=== PATIENT | female | born 1935 | race Caucasian/White ===

== ENCOUNTER 2016-08-12 11:30 | Emergency (ER) | payer OTHER, MEDICARE ==
[2016-08-12] MEDS ORDERED: NS 500 ML IV ONE (11:47)
[2016-08-12] MEDS ORDERED: ONDANSETRON 4 MG/2 ML VIAL ONE (11:48)
[2016-08-12] MEDS ORDERED: ONDANSETRON 4 MG/2 ML VIAL IVP ONE (11:50)
--- NOTE | 2016-08-12 11:53 | CPEKG ---
Heart Rate: 95 RR Interval: 632 P-R Interval: 204 QRSD Interval: 88 QT Interval: 356 QTC Interval: 448 P [place]: 35 QRS [place]: 12 T Wave [place]: 47 EKG Severity - NORMAL ECG - EKG Impression: SINUS RHYTHM Electronically Signed By: Tatiana Oliver 13-Aug-2016 21:22:31
[2016-08-12 12:02] LABS: % IMMATURE GRANULYOCYTES 0.4 % (0.0-1.1); ABSOLUTE IMMATURE GRANULOCYTES 0.03 10^3/uL (0.00-0.10); ADD DIFF? NO; ADD MORPH? NO; ADD SCAN? NO; ATYPICAL LYMPHOCYTE FLAG 10 (0-99); FRAGMENT RBC FLAG 0 (0-99); HEMATOCRIT 41.6 % (38.0-47.0); HEMOGLOBIN 13.5 g/dL (12.6-16.3); LEFT SHIFT FLG 0 (0-99); LIPEMIA HEMOLYSIS FLAG 80 (0-99); MEAN CELL HEMOGLOBIN 30.1 pg (27.9-34.1); MEAN CELL HEMOGLOBIN CONCENTR. 32.5 g/dL (32.4-36.7); MEAN CELL VOLUME 92.9 fL (81.5-99.8); MEAN PLATELET VOLUME 10.5 fL (8.7-11.7); PLATELET CLUMPS FLAG 0 (0-99); PLATELET COUNT 293 10^3/uL (150-400); RED BLOOD CELL COUNT 4.48 10^6/uL (4.18-5.33); RED CELL DISTRIBUTION WIDTH 12.6 % (11.5-15.2)
[2016-08-12 12:14] LABS: ANION GAP 10 mEq/L (8-16); CALCIUM 9.7 mg/dL (8.5-10.4); CARBON DIOXIDE 27 mEq/l (22-31); CHLORIDE 100 mEq/L (97-110); CREATININE 0.5 mg/dL (0.6-1.0); GLOMERULAR FILTRATION RATE > 60; GLUCOSE 116 mg/dL (70-100); POTASSIUM 4.1 mEq/L (3.5-5.2); SODIUM 137 mEq/L (134-144)
[2016-08-12 12:16] LABS: INR 0.97 (0.83-1.16); PROTIME(PATIENT) 12.8 SEC (12.0-15.0)
[2016-08-12 12:17] LABS: APTT 27.1 SEC (23.0-38.0)
--- NOTE | 2016-08-12 12:20 | EDPHY ---
H & P Time Seen by Provider: 08/12/16 11:45 HPI/ROS: HPI Vertigo. 81-year-old female by private vehicle with family. This patient has a history of congenital scoliosis of the cervical spine. She reports that secondary to this she also has a history of cervical vertigo. She reports that she has had 3 -4 episodes of cervical vertigo in the past. This was diagnosed by her primary care physician Dr. Manoj Villafuerte. As therapy for this she gets massage therapy as prescribed by Dr. Villafuerte. She also has a automobile mechanic apprentice and her civil preparedness officer is Dr. Guero Bhakta. They are both aware of this problem as well. She has never been imaged specifically for this problem. 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 She felt fine. She reports that she returned home and felt okay but then her vertigo which she again describes as typical of her previous episodes came on more suddenly than usual and has been more extreme. It is worse with head movement and in particular flexion of her neck. ROS: Constitutional: No fever, no chills. No weakness. Eyes: No discharge. No changes in vision. ENT: No sore throat. No nasal congestion or rhinorrhea. Respiratory: No cough. No shortness of breath. Cardiac: No chest pain, no palpitations. Gastrointestinal: No abdominal pain, no vomiting, no diarrhea. Genitourinary: No hematuria. No dysuria or increased frequency with urination. Musculoskeletal: No back pain. No neck pain. No myalgias or arthralgias. Skin: No rashes. Neurological: No headache. No focal weakness or altered sensation. Past medical history: She is on oxygen, 3 L by nasal cannula 24-7. 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 She also has COPD. Other past medical history includes hypertension, acute myocardial infarction, GERD, hyperlipidemia, she takes a baby aspirin and is on amlodipine. Social history: She is currently here with her son. Physical Exam: General Appearance: Alert, no distress. This patient is responding to questions appropriately and in full sentences. This patient appears well- hydrated and well-nourished. Eyes: Pupils equal and round no pallor or injection. No lid edema, erythema or injection. ENT, Mouth: Mucous membranes are moist. The pharyngeal tissues are unremarkable. No edema or swelling. No asymmetry suggestive of abscess. No erythema or exudates. Neck is nontender: No pain on flexion of the neck. No carotid artery bruits auscultated bilaterally. Respiratory: There are no retractions, lungs are clear to auscultation with good air movement bilaterally. Cardiovascular: Regular rate and rhythm. Holosystolic murmur. Gastrointestinal: Abdomen is soft and nontender, no masses, bowel sounds normal. No focal tenderness at McBurney's point. No Romero sign. Neurological: Motor sensory function is grossly intact. Cranial nerves are normal. Skin: Warm and dry, no rashes. Musculoskeletal: Neck is supple and nontender. Extremities are symmetrical. All joints range without pain or impingement. Psychiatric: No agitation. No depression. Database: EKG: EKG time is 11:51 a.m.; EKG shows a narrow complex normal sinus rhythm with a ventricular rate of 95. The [place], QRS, QT intervals are within normal limits. There are no ST-T wave changes indicative of ischemic or injury pattern. No evidence of right heart strain. No evidence of WPW, Brugada syndrome, hypertrophic cardiomyopathy. Interpreted by me. Imaging: Carotid artery Doppler ultrasounds: Negative for any significant pathology. Results were discussed with staff radiologist Dr. Perez Pham. Vertebral artery Doppler ultrasounds with position changes: Negative for any significant pathology. Results were discussed with staff radiologist Dr. Perez Pham. Procedures: Emergency department course: Patient placed on a engine emission technician. EKG performed. She will be given 250 cc of IV normal saline. As she is sitting still she does not have any symptoms at this time. 12:35 p.m., spoke with Dr. Perez Pham, radiologist, regarding imaging this patient's cervical/vertebral vasculature. He recommended ultrasound Doppler studies be done with flexion and extension positioning. This was discussed with the transport tank technician. I also discussed with the patient and her son. They endorse. 2:25 p.m., patient re-evaluated. Resting comfortably at this time. Repeat neurologic Assessment is nonfocal. She is asymptomatic. She is ambulatory without difficulty and with a normal gait. Results of her ultrasound and blood work were discussed with her and her son. She feels comfortable going home. She will follow up with her primary care physician Dr. Manoj Villafuerte on Sunday for referral for massage therapy which has worked well for her in the past with this condition. Return to emergency department precautions were discussed with her son. All of their questions were answered. She was discharged home in good condition. Differential Diagnosis: The differential diagnosis on this patient includes but is not limited to positional vertigo, cervical vertigo, CVA, vascular compromise. This represents a partial list of diagnoses considered. These considerations are based on history, physical exam, past history, reassessment and diagnostic testing. Smoking Status: Never smoked Constitutional: Initial Vital Signs Temperature (C) 36.4 C 08/12/16 11:33 Heart Rate 89 08/12/16 11:33 Respiratory Rate 18 08/12/16 11:33 Blood Pressure 154/90 H 08/12/16 11:33 O2 Sat (%) 90 L 08/12/16 11:33 O2 Delivery Mode Room Air O2 (L/minute) 3 Allergies/Adverse Reactions: bacitracin [From Neosporin] Allergy (Unknown, Verified 08/12/16 11:32) bacitracin zinc [From Neosporin] Allergy (Unknown, Verified 08/12/16 11:32) gramicidin D [From Neosporin] Allergy (Unknown, Verified 08/12/16 11:32) neomycin sulfate [From Neosporin] Allergy (Unknown, Verified 08/12/16 11:32) polymyxin B [From Neosporin] Allergy (Unknown, Verified 08/12/16 11:32) polymyxin B sulfate [From Neosporin] Allergy (Unknown, Verified 08/12/16 11:32) Sulfa (Sulfonamide Antibiotics) Allergy (Unknown, Verified 08/12/16 11:32) Home Medications: Medication Instructions Recorded Aspirin [Aspirin 81mg] 81 mg PO DAILY 11/21/10 Lansoprazole [Prevacid] 30 mg PO DAILY 11/21/10 Montelukast Sodium [Singulair] 10 mg PO DAILY@1800 11/21/10 SIMVASTATIN [Zocor] 40 mg PO 11/21/10 amLODIPine BESYLATE [Norvasc 5mg] 5 mg PO DAILY 11/21/10 Medical Decision Making - Data Points Laboratory Results: Laboratory Results 08/12/16 11:54 08/12/16 11:54 Medications Given: Discontinued Medications Sodium Chloride (Ns) 500 mls @ 0 mls/hr IV ONCE ONE PRN Reason: As Directed Stop: 08/12/16 11:48 Last Admin: 08/12/16 11:50 Dose: 500 mls Ondansetron HCl (Zofran) 4 mg IVP EDNOW ONE Stop: 08/12/16 11:51 Last Admin: 08/12/16 11:50 Dose: 4 mg Departure - Departure Disposition: Home, Routine, Self-Care Clinical Impression: Positional vertigo Condition: Good Instructions: Vertigo (ED) Additional Instructions: Read and follow provided instructions. Follow-up with your primary care physician, Dr. Manoj Villafuerte, on Sunday as discussed for re-evaluation and further management. Explain this is for an emergency department follow-up. Avoid any strenuous activity. Return to the emergency department for return of symptoms or other serious concerns. Referrals: Manoj Villafuerte MD [Primary Care Provider] - As per Instructions
[2016-08-12 12:24] LABS: TROPONIN I < 0.012 ng/mL (0-0.034)
[2016-08-12 12:36] LABS: CREATINE KINASE-MB FRACTION 4.55 ng/mL (0-3.19)
[2016-08-12 13:07] LABS: CK-MB INTERPRETATION POSITIVE (NEGATIVE)
[2016-08-12 13:37] VITALS: RESP 20
[2016-08-12 14:44] VITALS: BP 156/75; PULSE 89; TEMP 98.6; O2SAT 96
== END 2016-08-12 14:44 | disposition home or self-care (01) ==
DX: H81.10 Benign paroxysmal vertigo, unspecified ear (principal); I10 Essential (primary) hypertension; J44.9 Chronic obstructive pulmonary disease, unspecified; I25.2 Old myocardial infarction; Z79.82 Long term (current) use of aspirin
CPT/HCPCS: 71010; 93005; 93880; 96374; 99285; J2405

== ENCOUNTER → 2016-09-26 | Outpatient (CLI) | payer OTHER, MEDICARE | LOC: BHFA 16:15 | PROVIDERS: ATTEND Internal Medicine Cardiovascular Disease | DX: I35.0 Nonrheumatic aortic (valve) stenosis (principal) ==

== ENCOUNTER 2017-01-11 15:32 | Emergency (ER) | payer OTHER, MEDICARE ==
[2017-01-11 15:37] VITALS: TEMP 97.9
--- NOTE | 2017-01-11 15:57 | CPEKG ---
Heart Rate: 90 RR Interval: 667 P-R Interval: 200 QRSD Interval: 86 QT Interval: 364 QTC Interval: 446 P [place]: 38 QRS [place]: 6 T Wave [place]: 45 EKG Severity - BORDERLINE ECG - EKG Impression: SINUS RHYTHM EKG Impression: PROBABLE LEFT ATRIAL ABNORMALITY Electronically Signed By: Sumeet Sarmiento 11-Jan-2017 16:13:56
--- NOTE | 2017-01-11 16:13 | EDPHY ---
H & P Stated Complaint: at opthalmologist had sharp pains to chest with deep breath Time Seen by Provider: 01/11/17 15:56 HPI/ROS: CHIEF COMPLAINT: Chest pain HISTORY OF PRESENT ILLNESS: The patient is an 81-year-old female who comes to the emergency department after a brief episode of chest pain on the left side of her chest. She has a history of scoliosis and wears oxygen for compromised pulmonary volumes. She also had a minor heart attack in 1999 that was managed medically. She is followed by Dr. Bhakta and Dr. Villafuerte. She was at her eye doctor today and was injected in the arm with some type of medication that they used to dilate her eyes to check for glaucoma. She states that they do this once a month. About 5 minutes after the injection she developed left-sided chest pain. She went to see her anesthetic assistant who referred her to the ER. Her pain resolved after about 15 minutes. She denies shortness of breath during the episode. She denies nausea vomiting or diaphoresis. She does not feel lightheaded or dizzy. She drove herself here. REVIEW OF SYSTEMS: Constitutional: denies: chills, fever, recent illness, recent injury EENTM: denies: blurred vision, double vision, nose congestion Respiratory: denies: cough, shortness of breath Cardiac: See HPI denies: irregular heart rate, lightheadedness, palpitations Gastrointestinal/Abdominal: denies: abdominal pain, diarrhea, nausea, vomiting, blood streaked stools Genitourinary: denies: dysuria, frequency, hematuria, pain Musculoskeletal: denies: joint pain, muscle pain Skin: denies: lesions, rash, jaundice, bruising Neurological: denies: headache, numbness, paresthesia, tingling, dizziness, weakness Hematologic/Lymphatic: denies: blood clots, easy bleeding, easy bruising Immunologic/allergic: denies: HIV/AIDS, transplant EXAM: GENERAL: Well-appearing, well-nourished and in no acute distress. HEAD: Atraumatic, normocephalic. EYES: Pupils equal round and reactive to light, extraocular movements intact, sclera anicteric, conjunctiva are normal. ENT: TMs normal, nares patent, oropharynx clear without exudates. Moist mucous membranes. NECK: Normal range of motion, supple without lymphadenopathy or JVD. LUNGS: Breath sounds clear to auscultation bilaterally and equal. No wheezes rales or rhonchi. HEART: Regular rate and rhythm without murmurs, rubs or gallops. ABDOMEN: Soft, nontender, normoactive bowel sounds. No guarding, no rebound. No masses appreciated. BACK: No CVA tenderness, no spinal tenderness, step-offs or deformities EXTREMITIES: Normal range of motion, no pitting or edema. No clubbing or cyanosis. NEUROLOGICAL: Cranial nerves II through XII grossly intact. Normal speech, normal gait. 5/5 strength, normal movement in all extremities, normal sensation PSYCH: Normal mood, normal affect. SKIN: Warm, dry, normal turgor, no visible rashes or lesions. Source: Patient Exam Limitations: No limitations - Personal History Current Tetanus/Diphtheria Vaccine: Unsure - Medical/Surgical History Hx Asthma: No Hx Chronic Respiratory Disease: Yes Hx Diabetes: No Hx Cardiac Disease: Yes Hx Renal Disease: No Hx Cirrhosis: No Hx Alcoholism: No Hx HIV/AIDS: No Other PMH: PMH: AMI, HTN, high cholesterol, GERD, COPD - Family History Significant Family History: No pertinent family hx - Social History Smoking Status: Never smoked Alcohol Use: Sober Drug Use: None Constitutional: Initial Vital Signs Temperature (C) 36.6 C 01/11/17 15:35 Heart Rate 96 01/11/17 15:35 Respiratory Rate 20 01/11/17 15:35 Blood Pressure 178/82 H 01/11/17 15:35 O2 Sat (%) 95 01/11/17 15:35 O2 Delivery Mode Room Air O2 (L/minute) 4 Allergies/Adverse Reactions: bacitracin [From Neosporin] Allergy (Unknown, Verified 01/11/17 15:34) bacitracin zinc [From Neosporin] Allergy (Unknown, Verified 01/11/17 15:34) gramicidin D [From Neosporin] Allergy (Unknown, Verified 01/11/17 15:34) neomycin sulfate [From Neosporin] Allergy (Unknown, Verified 01/11/17 15:34) polymyxin B [From Neosporin] Allergy (Unknown, Verified 01/11/17 15:34) polymyxin B sulfate [From Neosporin] Allergy (Unknown, Verified 01/11/17 15:34) Sulfa (Sulfonamide Antibiotics) Allergy (Unknown, Verified 01/11/17 15:34) Home Medications: Medication Instructions Recorded Aspirin [Aspirin 81mg] 81 mg PO DAILY 11/21/10 Lansoprazole [Prevacid] 30 mg PO DAILY 11/21/10 Montelukast Sodium [Singulair] 10 mg PO DAILY@1800 11/21/10 SIMVASTATIN [Zocor] 40 mg PO 11/21/10 amLODIPine BESYLATE [Norvasc 5mg] 5 mg PO DAILY 11/21/10 Medical Decision Making - Diagnostics EKG Interpretation: An EKG obtained and was read and documented in trace view. Please see trace view for full reading and report. Sinus rhythm, no acute ischemic changes 4:20 p.m. is able to speak with Dr. Jones patient's interior design assistant. He states that she was injected with intravenous floricine for retinal exam and doubts that has anything to do with her chest pain. Imaging Results: Imaging Impressions Chest X-Ray 01/11/17 16:10 Impression: Nothing acute identified in this patient with a severe kyphoscoliosis. Imaging: Discussed imaging studies w/ call out clerk Radiologist ED Course/Re-evaluation: 5:50 p.m. we discussed the test results. The patient remains asymptomatic. I offered continued observation and repeat enzymes. She declines this and is eager to go home. She will return if her symptoms return or worsen. Differential Diagnosis: Partial list of the Differential diagnosis considered include but were not limited to; acute coronary disease, anxiety, musculoskeletal pain and although unlikely based on the history and physical exam, I also considered PE, pneumothorax. - Data Points Laboratory Results: Laboratory Results 01/11/17 15:58 01/11/17 15:58 01/11/17 01/11/17 01/11/17 15:58 15:58 15:58 WBC 7.30 10^3/uL 10^3/uL (3.80-9.50) RBC 4.19 10^6/uL 10^6/uL (4.18-5.33) Hgb 13.1 g/dL g/dL (12.6-16.3) Hct 40.3 % % (38.0-47.0) MCV 96.2 fL fL (81.5-99.8) MCH 31.3 pg pg (27.9-34.1) MCHC 32.5 g/dL g/dL (32.4-36.7) RDW 12.4 % % (11.5-15.2) Plt Count 270 10^3/uL 10^3/uL (150-400) MPV 11.1 fL fL (8.7-11.7) Neut % (Auto) 47.9 % % (39.3-74.2) Lymph % (Auto) 37.7 % % (15.0-45.0) [place] % (Auto) 11.1 % % (4.5-13.0) Eos % (Auto) 2.3 % % (0.6-7.6) Baso % (Auto) 0.7 % % (0.3-1.7) Nucleat RBC Rel Count 0.0 % % (0.0-0.2) Absolute Neuts (auto) 3.50 10^3/uL 10^3/uL (1.70-6.50) Absolute Lymphs (auto) 2.75 10^3/uL 10^3/uL (1.00-3.00) Absolute Monos (auto) 0.81 10^3/uL H 10^3/uL (0.30-0.80) Absolute Eos (auto) 0.17 10^3/uL 10^3/uL (0.03-0.40) Absolute Basos (auto) 0.05 10^3/uL 10^3/uL (0.02-0.10) Absolute Nucleated RBC 0.00 10^3/uL 10^3/uL (0-0.01) Immature Gran % 0.3 % % (0.0-1.1) Immature Gran # 0.02 10^3/uL 10^3/uL (0.00-0.10) D-Dimer 0.46 ug/mLFEU ug/mLFEU (0.00-0.50) Sodium 138 mEq/L mEq/L (134-144) Potassium 4.4 mEq/L mEq/L (3.5-5.2) Chloride 100 mEq/L mEq/L (97-110) Carbon Dioxide 27 mEq/l mEq/l (22-31) Anion Gap 11 mEq/L mEq/L (8-16) BUN 15 mg/dL mg/dL (7-23) Creatinine 0.7 mg/dL mg/dL (0.6-1.0) Estimated GFR > 60 Glucose 99 mg/dL mg/dL (70-100) Calcium 9.6 mg/dL mg/dL (8.5-10.4) Troponin I < 0.012 ng/mL ng/mL (0-0.034) Departure - Departure Disposition: Home, Routine, Self-Care Clinical Impression: Chest pain Qualifiers: Chest pain type: unspecified Qualified Code(s): R07.9 - Chest pain, unspecified Condition: Fair Instructions: Chest Pain (ED) Referrals: Manoj Villafuerte MD [Primary Care Provider] - As per Instructions
[2017-01-11 16:25] LABS: % IMMATURE GRANULYOCYTES 0.3 % (0.0-1.1); ABSOLUTE IMMATURE GRANULOCYTES 0.02 10^3/uL (0.00-0.10); ADD DIFF? NO; ADD MORPH? NO; ADD SCAN? NO; ATYPICAL LYMPHOCYTE FLAG 10 (0-99); FRAGMENT RBC FLAG 0 (0-99); HEMATOCRIT 40.3 % (38.0-47.0); HEMOGLOBIN 13.1 g/dL (12.6-16.3); LEFT SHIFT FLG 0 (0-99); LIPEMIA HEMOLYSIS FLAG 80 (0-99); MEAN CELL HEMOGLOBIN 31.3 pg (27.9-34.1); MEAN CELL HEMOGLOBIN CONCENTR. 32.5 g/dL (32.4-36.7); MEAN CELL VOLUME 96.2 fL (81.5-99.8); MEAN PLATELET VOLUME 11.1 fL (8.7-11.7); PLATELET CLUMPS FLAG 0 (0-99); PLATELET COUNT 270 10^3/uL (150-400); RED BLOOD CELL COUNT 4.19 10^6/uL (4.18-5.33); RED CELL DISTRIBUTION WIDTH 12.4 % (11.5-15.2)
[2017-01-11 16:26] VITALS: O2SAT 97
[2017-01-11 16:31] LABS: ANION GAP 11 mEq/L (8-16); CALCIUM 9.6 mg/dL (8.5-10.4); CARBON DIOXIDE 27 mEq/l (22-31); CHLORIDE 100 mEq/L (97-110); CREATININE 0.7 mg/dL (0.6-1.0); GLOMERULAR FILTRATION RATE > 60; GLUCOSE 99 mg/dL (70-100); POTASSIUM 4.4 mEq/L (3.5-5.2); SODIUM 138 mEq/L (134-144)
[2017-01-11 16:42] LABS: TROPONIN I < 0.012 ng/mL (0-0.034)
[2017-01-11 18:03] VITALS: BP 157/65; PULSE 83; RESP 20
== END 2017-01-11 18:05 | disposition home or self-care (01) ==
DX: R07.9 Chest pain, unspecified (principal); I10 Essential (primary) hypertension; J44.9 Chronic obstructive pulmonary disease, unspecified; Z79.82 Long term (current) use of aspirin

== ENCOUNTER → 2017-09-10 | Outpatient (CLI) | payer OTHER, MEDICARE | LOC: BHFA 14:00 | PROVIDERS: ATTEND Internal Medicine Cardiovascular Disease | DX: I35.0 Nonrheumatic aortic (valve) stenosis (principal) ==

== ENCOUNTER 2017-10-03 06:13 | Day surgery (SDC) | payer OTHER, MEDICARE ==
[2017-10-03] MEDS ORDERED: diphenhydrAMINE 25 MG CAP PO ONE (06:18)
[2017-10-03] MEDS ORDERED: NS 1,000 ML IV ONE (06:18)
[2017-10-03] MEDS ORDERED: DIAZEPAM 5 MG TAB PO ONE (06:18)
[2017-10-03] MEDS ORDERED: FAMOTIDINE 20 MG TAB PO ONE (06:18)
[2017-10-03] MEDS ORDERED: ASPIRIN EC 325 MG TAB PO ONE (06:18)
--- NOTE | 2017-10-03 06:40 | CPEKG ---
Heart Rate: 96 RR Interval: 625 P-R Interval: 188 QRSD Interval: 92 QT Interval: 356 QTC Interval: 450 P [place]: 45 QRS [place]: 18 T Wave [place]: 68 EKG Severity - NORMAL ECG - EKG Impression: SINUS RHYTHM Electronically Signed By: Wesley Saleem 03-Oct-2017 10:56:59
[2017-10-03 06:50] LABS: PLATELET COUNT 275 10^3/uL (150-400)
--- NOTE | 2017-10-03 06:58 | PDPROPOC ---
Sedation Plan of Care Sedation Plan of Care: mental status noted, patient educated of risks, benefits , alternatives, patient can tolerate sedation ASA Classification: ASA 2 Planned drugs: fentanyl, midazolam Mallampati Score: Class 2 Mallampati Reference Image: Patient passed 3-3-2 rule?: Yes
--- NOTE | 2017-10-03 06:58 | PDHPUP ---
History & Physical Update H&P update statement: This history and physical update is based on an assessment of the patient which was completed after admission or registration (within 24 hours), but prior to the surgery/procedure. H&P update: H&P reviewed & patient examined, no change in patient's condition since H&P completed
[2017-10-03 06:59] LABS: INR 0.96 (0.83-1.16)
[2017-10-03] MEDS ORDERED: LIDOCAINE 1% 300 MG/30 ML SDV ONE (07:01)
[2017-10-03] MEDS ORDERED: IOPAMIDOL (ISOVUE-370) 150 ML BTL IV ONE ×2 (07:01→13:35)
[2017-10-03] MEDS ORDERED: MIDAZOLAM 2 MG/2 ML VIAL ONE (07:01)
[2017-10-03] MEDS ORDERED: fentaNYL 100 MCG/2 ML INJ ONE (07:01)
[2017-10-03] MEDS ORDERED: CLOPIDOGREL BISULFATE 75 MG TAB ONE (07:20)
[2017-10-03] MEDS ORDERED: hydrALAZINE 20 MG/ML VIAL ONE (08:16)
[2017-10-03] MEDS ORDERED: NITROGLYCERIN 0.4 MG BTL SL PRN (08:45)
[2017-10-03] MEDS ORDERED: OXYCODONE/APAP 5/325 TAB PO PRN (08:45)
[2017-10-03] MEDS ORDERED: ATROPINE SULFATE 1 MG/10 ML SYR IVP PRN (08:45)
[2017-10-03] MEDS ORDERED: ONDANSETRON 4 MG/2 ML VIAL IVP PRN (08:45)
[2017-10-03] MEDS ORDERED: HYDROCODONE/APAP 5/325 TAB PO PRN (08:45)
--- NOTE | 2017-10-03 09:13 | CPIP ---
[f rep st] INVASIVE CARDIAC PROCEDURE DATE OF PROCEDURE: 10/03/2017 INDICATION FOR PROCEDURE: Critical aortic stenosis. PROCEDURE: 1. Nonselective left groin sheathogram. 2. 7-[place]anese sheath left common femoral vein. 3. Bilateral selective coronary angiography. 4. Left subclavian angiography. 5. Abdominal aortogram. BRIEF HISTORY: This is an 82-year-old female with history of critical aortic stenosis, worsening dys pnea on exertion. Given these findings, patient consented for right and left heart catheterization i n anticipation for eventual TAVR. The patient had seen Dr. Brian Forbes from CT surgery as an outpati ent, was deemed to be a suitable candidate for TAVR, given her frailty, age, as well as her comorbid issues. DESCRIPTION OF PROCEDURE: After informed consent, the patient was brought to [facility], where the left ky in was prepped and draped in the sterile fashion. Using lidocaine, a short 6-Sudanese sheath in the le ft common femoral artery verified angiographically. Of note, the vessel appeared to be clean in the left common femoral artery; however, of smaller diameter. A 7-Sudanese sheath was placed in the left c ommon femoral vein. Initially a [place]-Trista catheter was advanced. However, this did not appear to be traversing the IVC due to the patient's severe kyphosis properly. We took a venogram, which did con firm that we were indeed in the common femoral vein; however, it did appear that due to the excessive tortuosity that the catheter would not be able to be delivered effectively. Thus, we decided to scarlet ndon performing a right heart catheterization to avoid any untoward complication. A JL4 catheter was advanced and the patient, again due to her excessive kyphosis, had severe tortuosity over the descen ding aorta. We decided to upsize the 6-Sudanese sheath to a 45 cm 6-Sudanese sheath over an Amplatz supe rstiff wire. A JR4 catheter was advanced and images of the right coronary artery were obtained, whic h showed normal ostial RCA. Mid RCA had 30% to 40% tubular disease. Distal RPD and RPLS appeared to be healthy and free of disease. After the images were obtained, the JL4 catheter was pulled back an d placed in the left subclavian artery where angiography of the left subclavian artery showed widely patent left subclavian artery, which was straight and of much larger diameter than the femoral vessel s. After the images were obtained, the JL4 catheter was removed and the AL1 catheter was advanced to the left coronary artery. Images of the left coronary artery showed mild 20% left main disease. Le ft circumflex artery had 30% tubular disease proximally, terminated to a marginal 1 artery which was healthy and free of disease. The LAD was a serpiginous vessel and appeared to have mild plaque disea se throughout its course, but no high-grade stenosis. After imaging had been obtained, the AL1 ragini ter was removed. A pigtail catheter was then advanced to the descending aorta. Abdominal aortogram showed patent but thin distal descending aorta. There was 50% disease in the right common iliac martha ry. Distally, the internal and external and common femoral arteries appeared to be widely patent. T he left common, external, and internal iliac arteries appeared to be widely patent, but again of smal ler diameter. IMPRESSION: 1. Mild nonobstructive, noncritical coronary artery disease bilaterally. 2. Severe tortuous aorta. 3. Widely patent left subclavian artery with no evidence of significant disease. 4. 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 PLAN: The patient is not a candidate for transfemoral TAVR based on her anatomy of her femoral diame ter, as well as the extreme tortuosity of the descending aorta. Her left subclavian appears to be wi negrita patent and of large enough caliber. We will obtain CTAs of the chest, abdomen, and pelvis for f urther evaluation. I will discuss this with the TAVR team for further evaluation. /[id number]/MODL
[2017-10-03] MEDS ORDERED: KETOROLAC 30 MG/1 ML SDV IVP ONE (11:30)
[2017-10-03 16:01] VITALS: BP 130/58
== END 2017-10-03 16:14 | disposition home or self-care (01) ==
LOC: FCATH 06:13
PROVIDERS: ATTEND Internal Medicine Cardiovascular Disease
DX: Z01.810 Encounter for preprocedural cardiovascular examination (principal); I35.0 Nonrheumatic aortic (valve) stenosis; R06.00 Dyspnea, unspecified; I70.8 Atherosclerosis of other arteries; I77.1 Stricture of artery; I65.23 Occlusion and stenosis of bilateral carotid arteries; I25.10 Atherosclerotic heart disease of native coronary artery without angina pectoris; J44.9 Chronic obstructive pulmonary disease, unspecified; K21.9 Gastro-esophageal reflux disease without esophagitis; E78.5 Hyperlipidemia, unspecified; I10 Essential (primary) hypertension; M41.9 Scoliosis, unspecified; I34.0 Nonrheumatic mitral (valve) insufficiency; I25.2 Old myocardial infarction; G62.9 Polyneuropathy, unspecified; J98.4 Other disorders of lung; Z79.82 Long term (current) use of aspirin; Z87.891 Personal history of nicotine dependence; Z88.2 Allergy status to sulfonamides
CPT/HCPCS: 71275; 74174; 75625; 75710; 93005; 93458; 93880; C1769; J0360; J1644; J1885; J2250; J2405; J3010; Q9967

== ENCOUNTER 2017-10-15 06:08 | Inpatient (IN) | payer OTHER, MEDICARE ==
[2017-10-15] MEDS ORDERED: EPINEPHrine 1 MG/ML INJ ONE (06:44)
[2017-10-15] MEDS ORDERED: PHENYLEPHRINE 10 MG/ML SDV ONE (06:44)
[2017-10-15] MEDS ORDERED: LIDOCAINE 2% 5 ML SDV ONE (06:46)
[2017-10-15] MEDS ORDERED: PROPOFOL 200 MG/20 ML VIAL ONE (06:46)
[2017-10-15] MEDS ORDERED: fentaNYL 100 MCG/2 ML INJ ONE (06:51)
[2017-10-15] MEDS ORDERED: ROCURONIUM 50 MG/5 ML VIAL ONE ×2 (06:52→09:18)
[2017-10-15] MEDS ORDERED: IOPAMIDOL (ISOVUE-370) 150 ML BTL IV ONE (06:59)
[2017-10-15] MEDS ORDERED: ceFAZolin 2 GM/DEXTROSE 100 ML IV ONE (07:00)
--- NOTE | 2017-10-15 07:23 | PDANEPAE ---
ANE History of Present Illness tavr ANE Past Medical History - Cardiovascular History Hx Hypertension: Yes Hx Arrhythmias: No Hx Chest Pain: No Hx Coronary Artery / Peripheral Vascular Disease: Yes Hx CHF / Valvular Disease: Yes Hx Palpitations: No Cardiovascular History Comment: s/p mi - Pulmonary History Hx COPD: Yes Hx Oxygen in Use at Home: Yes Hx Sleep Apnea: No Pulmonary History Comment: restrictive lung disease - Endocrine History Hx Diabetes: No - Renal History Hx Renal Disorders: No - Liver History Hx Hepatic Disorders: No ANE Review of Systems Review of Systems: - Exercise capacity Exercise capacity: <4 METS ANE Patient History - Allergies Allergies/Adverse Reactions: bacitracin [From Neosporin] Allergy (Unknown, Verified 01/11/17 15:34) bacitracin zinc [From Neosporin] Allergy (Unknown, Verified 01/11/17 15:34) gramicidin D [From Neosporin] Allergy (Unknown, Verified 01/11/17 15:34) neomycin sulfate [From Neosporin] Allergy (Unknown, Verified 01/11/17 15:34) polymyxin B [From Neosporin] Allergy (Unknown, Verified 01/11/17 15:34) polymyxin B sulfate [From Neosporin] Allergy (Unknown, Verified 01/11/17 15:34) Sulfa (Sulfonamide Antibiotics) Allergy (Unknown, Verified 01/11/17 15:34) - Home Medications Home Medications: Aspirin [Aspirin 81mg (*)] 81 mg PO DAILY 09/27/17 [Last Taken 10/14/17] Atorvastatin Calcium [Lipitor 40 mg (*)] 40 mg PO DAILY 09/27/17 [Last Taken ] Lisinopril [Zestril 5 mg (*)] 5 mg PO DAILY 09/27/17 [Last Taken 10/03/17 05:00] Montelukast Sodium [Singulair 10 mg (*)] 10 mg PO HS 09/27/17 [Last Taken ] Multivitamins [Multivitamin (*)] 1 each PO DAILY 09/27/17 [Last Taken 10/02/17] [place]-3 Fatty Acids [Fish Oil 1000 mg (*)] 2,000 mg PO DAILY 09/27/17 [Last Taken 10/02/17] Omeprazole 20 mg PO DAILY 09/27/17 [Last Taken 10/02/17] Torsemide [Demadex 10 MG (RX)] 10 mg PO DAILY10 09/27/17 [Last Taken 10/02/17] - NPO status NPO Status: no food or drink >8 hours - Smoking Hx Smoking Status: Former smoker ANE Labs/Vital Signs - Vital Signs Height: 154.94 cm Weight: 63.503 kg ANE Physical Exam - Airway Mallampati Score: Class 2 Mouth exam: normal dental/mouth exam - Pulmonary Pulmonary: no respiratory distress - Cardiovascular Cardiovascular: regular rate and rhythym - ASA Status ASA Status: III ANE Anesthesia Plan Anesthesia Plan: general endotracheal anesthesia Lines/Monitors: arterial line, central line, ROBERT
[2017-10-15] MEDS ORDERED: SUCCINYLCHOLINE CHLORIDE 200 MG/10 ML SYR IVP ONE (07:28)
--- NOTE | 2017-10-15 07:34 | PDPROPOC ---
Sedation Plan of Care Sedation Plan of Care: mental status noted, patient educated of risks, benefits , alternatives, patient can tolerate sedation ASA Classification: ASA 3 Planned drugs: other Mallampati Score: Class 3 Mallampati Reference Image: Patient passed 3-3-2 rule?: Yes
[2017-10-15] MEDS ORDERED: HEPARIN 10,000 UNIT/10 ML MDV (1,000 UNIT/ML) ONE (08:51)
[2017-10-15] MEDS ORDERED: AMIODARONE HCL 150 MG/3 ML VIAL ONE (10:11)
[2017-10-15] MEDS ORDERED: PROTAMINE SULFATE 50 MG/5 ML VIAL IVP ONE (10:23)
[2017-10-15] MEDS ORDERED: ONDANSETRON 4 MG/2 ML VIAL IVP PRN ×2 (10:38→11:04)
[2017-10-15] MEDS ORDERED: IBUPROFEN 800 MG TAB PO PRN (10:38)
[2017-10-15] MEDS ORDERED: ATROPINE SULFATE 1 MG/10 ML SYR IVP PRN (10:38)
[2017-10-15] MEDS ORDERED: HYDROmorphONE/DILAUDID 1 MG/ML INJ IVP PRN (10:38)
[2017-10-15] MEDS ORDERED: hydrALAZINE 20 MG/ML VIAL IVP PRN (10:38)
[2017-10-15] MEDS ORDERED: ONDANSETRON DISINTEGRATING 4 MG TAB PO PRN (10:38)
[2017-10-15] MEDS ORDERED: oxyCODONE IR 5 MG TAB PO PRN (10:38)
[2017-10-15] MEDS ORDERED: NALOXONE HCL 0.4 MG/ML INJ IVP PRN (11:04)
[2017-10-15] MEDS ORDERED: fentaNYL 100 MCG/2 ML INJ IVP PRN (11:04)
[2017-10-15] MEDS ORDERED: ALBUTEROL 3 ML DEYVIAL IH PRN (11:04)
[2017-10-15] MEDS ORDERED: PHENYLEPHRINE HCL 100 MCG/ML SYR IVP PRN (11:04)
--- NOTE | 2017-10-15 11:04 | POSTANESTH ---
Post Anesthetic Evaluation Cardiovascular Status: Normal, Stable Respiratory Status: Normal, Stable Level of Consciousness/Mental Status: Can Participate in Eval Pain Control: Adequate, Prn Tx Ordered Nausea/Vomiting Control: Adequate, Prn Tx Ordered Complications Possibly Related to Anesthesia: None Noted
--- NOTE | 2017-10-15 11:34 | CPIP ---
[f rep st] INVASIVE CARDIAC PROCEDURE DATE OF PROCEDURE: 10/15/2017 INDICATION FOR PROCEDURE: Critical aortic stenosis. CO-SURGEONS: Brian Forbes DO; Janet Christopher MD; Ry Lord MD. PROCEDURE: 1. Nonselective left groin sheathogram. 2. Aortic root angiography. 3. Left subclavian artery access via open cutdown with graft placement. 4. Placement of Medtronic CoreValve Evolut R 26 mm valve via the subclavian route. HISTORY: Briefly, this is an 82-year-old female with history of critical aortic stenosis, kyphoscoli osis, severe restrictive lung disease, who was deemed to be a suitable candidate for TAVR given her e xtreme high-risk nature. DESCRIPTION OF PROCEDURE: The patient was consented and brought to [facility] where the patient was electiv roxann intubated. 2 g of Ancef was administered IV. The patient's femoral access was not large enough for placement of a TAVR sheath. The left subclavian artery was exposed by Dr. Forbes. Please refer t o Dr. Forbes's operative note for full delineation of operative procedure for exposure of left transax illary approach. A graft was sutured into the left subclavian artery. The patient was administered 10,000 heparin IV via the graft. A Seldinger technique was utilized, and a short 6-Malian sheath was placed into the graft. The valve was then crossed with an AL1 catheter straight stiff Glidewire swi tched out for a pigtail catheter switched out for a Confida wire. The sheath was then exchanged out for a 14-Malian sheath. After serial up dilations, a Z-Med 18 balloon was then used to pre-dilate th e valve at a pacing rate of 180 beats per minute. After this was performed, the balloon was removed. We then proceeded with removing the 14-Malian sheath and placing the Medtronic CoreValve Evolut R 2 6 mm valve. This was then deployed successfully. After 2 initial deployments, the 3rd repositioning showed success in deployment. After deployment of the valve, there was trivial perivalvular leak no ellis. The patient did go into a run of atrial flutter 2:1 with some slight hypertension. The patient was cardioverted successfully with 200 joules synchronous. After this was performed, the patient wa s returned to sinus rhythm. The valve sheath was then pulled back, and the left axillary access was closed by Dr. Forbes. The left groin was then closed with an 8-Malian Angio-Seal. The temporary pace maker wire was kept in place. The patient tolerated the procedure well with no complications. IMPRESSION: Successful placement of Medtronic Evolut R 26 mm valve via the subclavian route. PLAN: The patient will be admitted to ICU. Further orders following clinical course. /[id number]/MODL
--- NOTE | 2017-10-15 11:44 | GOP ---
[f rep st] OPERATIVE REPORT DATE OF OPERATION: 10/15/2017 SURGEON: Brian Forbes DO EMERGENCY MEDICAL TECHNICIAN/DRIVER: Haim Walden PA-C. ANESTHESIOLOGIST: Ry Lord MD. PREOPERATIVE DIAGNOSIS: Critical aortic stenosis. POSTOPERATIVE DIAGNOSIS: Critical aortic stenosis. PROCEDURE PERFORMED: Left axillary artery exposure with 6 mm Hemashield graft end-to-side and deploy ment of Resolut R valve. Please see co-dictation by Dr. Santos. FINDINGS: DESCRIPTION OF PROCEDURE: The patient was brought to the catheterization lab, consented for left axi llary cannulation for TAVR due to aortic anatomy. Under general anesthetic, after access to the aimee nary sinus via the left common femoral artery by Dr. Santos was performed, we exposed the left axill eri artery, which was approximately 6 mm in diameter and without calcification. Because of its small nature and a deep chest cavity because of her extreme kyphosis and scoliosis, we elected to sew a 6 mm graft end-to-side in order to facilitate conduit placement. She was heparinized. I then crosscla mped the axillary artery proximally and distally and sewed an end-to-side 6 mm Hemashield graft, rein forced with BioGlue. Dr. Santos then placed wires across the aortic valve. He balloon dilated the valve through the graft. We then placed a Confida wire in the left ventricle as dictated by Dr. Ciara pulliam. I then advanced the sheath and valve across the anulus, and on 3rd deployment, because of locat ion, we felt that it was perfectly placed. Transesophageal echo revealed no perivalvular leak. Ther e was slight increase in her mitral regurgitation but good LV function. The system was then removed once we were satisfied with the findings. The graft was transected 1 cm distal to the anastomosis an d oversewn with 4-0 Prolene. Two additional large hemoclips were placed. The wound was closed. Antoine ssings were applied. Patient was returned to recovery room in stable condition. SURGEONS: Brian Forbes DO, and Jamey Santos MD. /[id number]/MODL
--- NOTE | 2017-10-15 12:19 | PDMN ---
Medical Necessity Medical necessity: IP procedure per [facility] CPT 58313 for TAVR
[2017-10-15] MEDS: ACETAMINOPHEN 325 MG TAB PO SCH ×3 (15:55→23:53)
--- NOTE | 2017-10-15 16:20 | ASMTCMCOM ---
CM Note CM Note Notes: 82yr old female admitted for Aortic stenosis, Hx of cardiac and pulmonary issues. Had TAVR procedure. CM to follow, may not have discharge needs. Lives at [facility]. Her son Sherif is her MPOA. Date Signed: 10/15/2017 04:20 PM Electronically Signed By:Steph Levy LCSW
--- NOTE | 2017-10-15 16:56 | ECHO ---
[email or web address] [id number] Main: [phone] Fax: Transesophageal Echocardiography Name: SELMA HINES MR#: [id number] Study Date: 10/15/2017 Study Time: 06:15 AM Date of : 1935 Age: 82 year(s) Height: ( ) Weight: ( ) BSA: Gender: Female Examination: ROBERT Indication: TAVR Image Quality: Contrast: Requested by: Jamey Santos Heart Rate: Rhythm: Normal sinus rhythm BP: / Procedure Staff Preload Supervisor: Sarbjit Washburn RDCS Reading Physician: Janet Christopher MD Requesting Provider: ROBERT Exam Details Conclusions: Normal global systolic LV function. There is mild thickening of the mitral valve leaflets. Moderate to severe mitral regurgitation. Mild mitral valve stenosis is present. The mitral valve Mean PG is 6 mmHg.. Severe aortic valve calcification is present. Severe calcific aortic valve stenosis. No pericardial effusion. Pre TAVR peak Ao valve velocity is 4.5 m/s with a AV peak gradient of 82 mmHg and a Aortic valve mean gradient of 49 mmHg. Post TAVR, The peak Ao valve velocity is 1.4 m/s with a AV peak gradient of 9 mmHg and a AV mean gradient 4 mmHg. . Post TAVR HIRAM is 1.2 cm2 Measurements: Chambers Valvular Assessment AV/MV Valvular Assessment TV/PV Normal Normal Normal Name Value Range Name Value Range Name Value Range LVOTd 1.7 cm 1.7 cm mm AV meanP mmHg ( - ) HIRAM (VTI): 0.8 cm ( - ) MV meanP mmHg ( - ) MVA (Vmax): 1.3 m/s ( - ) Additional Measurements: Patient: SELMA HINES Study Date: 10/15/2017 Page 1 of 2 06:15 AM Valvular Assessment AV/MV Name Value MV VTI: 34.90 cm Findings: Left Ventricle: Normal global systolic LV function. Mitral Valve: There is mild thickening of the mitral valve leaflets. Moderate to severe mitral regurgitation. Mild mitral valve stenosis is present. The mitral valve Mean PG is 6 mmHg.. Aortic Valve: Severe aortic valve calcification is present. Severe calcific aortic valve stenosis. Pericardium: No pericardial effusion. Exam Comments: Pre TAVR peak Ao valve velocity is 4.5 m/s with a AV peak gradient of 82 mmHg and a Aortic valve mean gradient of 49 mmHg. Post TAVR, The peak Ao valve velocity is 1.4 m/s with a AV peak gradient of 9 mmHg and a AV mean gradient 4 mmHg. . Post TAVR HIRAM is 1.2 cm2 l1n (No Signature Object) Patient: SELMA HINES Study Date: 10/15/2017 Page 2 of 2 06:15 AM [id number]
[2017-10-15] MEDS: MONTELUKAST SODIUM 10 MG TAB PO SCH (20:52)
[2017-10-16] MEDS: ACETAMINOPHEN 325 MG TAB PO SCH ×4 (05:00→22:26)
[2017-10-16 05:23] LABS: PLATELET COUNT 205 10^3/uL (150-400)
[2017-10-16 05:46] LABS: INR 1.07 (0.83-1.16); PROTIME(PATIENT) 14.1 SEC (12.0-15.0)
--- NOTE | 2017-10-16 07:08 | PDCARPN ---
Cardiology Progress Note Chief Complaint: s/p TAVR Assessment/Plan: Assessment: s/p TAVR Plan: 10/16/17 07:06 doing well NSR sites stable OOB transfer to floor hold plavix given reduced Hgb check labs in AM Subjective: doing well Reviewed/Discussed With: multidisciplinary team Time Spent With Patient: 25 min Objective: Vital Signs (8 Hrs) Temp Pulse Resp BP Pulse Ox 10/16/17 06:00 79 20 104/34 L 99 10/16/17 05:00 70 16 104/41 L 95 10/16/17 04:00 36.9 C 80 14 96/24 L 98 10/16/17 03:00 72 16 94/29 L 99 10/16/17 02:00 81 20 95/29 L 100 10/16/17 01:00 78 16 98/30 L 89 L 10/16/17 00:00 36.7 C 76 15 122/48 H 96 Intake/Output (24 Hrs) 10/15/17 10/16/17 10/17/17 05:59 05:59 05:59 Intake Total 800 Output Total 900 Balance -100 Intake: Oral (ml) 800 Output: Urine (ml) 900 Bedside Commode 900 Other: Weight 63.503 kg 66.3 kg Number of Voids Bedside Commode 1 Result Diagrams: 10/16/17 04:50 10/16/17 04:50 - Physical Exam Constitutional: healthy appearing Eyes: PERRL Ears, Nose, Mouth, Throat: moist mucous membranes Cardiovascular: regular rate and rhythm Peripheral Pulses: 1+: femoral (R), femoral (L) Respiratory: clear to auscultate bilat Gastrointestinal: no tenderness Genitourinary: no suprapubic tenderness Skin: no rashes Musculoskeletal: no muscular tenderness Neurologic: AAOx3 Psychiatric: cooperative Lymph, Heme, Immunologic: no lymphadenopathy ICD10 Worksheet Patient Problems: Problems Problem Status Onset Aortic stenosis Acute - ICD10 Problem Qualifiers (1) Aortic stenosis Qualifiers: Cardiac valve disease etiology: nonrheumatic Qualified Code(s): I35.0 - Nonrheumatic aortic (valve) stenosis
--- NOTE | 2017-10-16 08:46 | CPEKG ---
Heart Rate: 87 RR Interval: 690 P-R Interval: 196 QRSD Interval: 130 QT Interval: 444 QTC Interval: 535 P [place]: 37 QRS [place]: 4 T Wave [place]: 142 EKG Severity - ABNORMAL ECG - EKG Impression: SINUS RHYTHM EKG Impression: LEFT BUNDLE BRANCH BLOCK Electronically Signed By: Guero Bhakta 16-Oct-2017 09:44:12
--- NOTE | 2017-10-16 08:58 | SOAPPROG ---
SOAP Progress Note Assessment/Plan: s/p TAVR with access via graft through left axillary artery - Wound soft and incision C/D/I - Continue mgmt as per cardiology Subjective: Denies pain. Objective: Vital Signs Temp Pulse Resp BP Pulse Ox 36.9 C 79 20 104/34 L 99 10/16/17 04:00 10/16/17 06:00 10/16/17 06:00 10/16/17 06:00 10/16/17 06:00 Laboratory Results 10/16/17 04:50 10/16/17 04:50 10/15/17 10/16/17 10/17/17 05:59 05:59 05:59 Intake Total 800 450 Output Total 900 Balance -100 450 PT 14.1 SEC (12.0-15.0) 10/16/17 04:50 INR 1.07 (0.83-1.16) 10/16/17 04:50 Physical Exam - Physical Exam Cardiac/Chest: other (wound soft, incision C/D/I) ICD10 Worksheet Patient Problems: Problems Problem Status Onset Aortic stenosis Acute
[2017-10-16] MEDS ORDERED: CLOPIDOGREL BISULFATE 75 MG TAB PO SCH (09:00)
[2017-10-16] MEDS ORDERED: LISINOPRIL 5 MG TAB PO SCH (09:00)
[2017-10-16] MEDS ORDERED: NS 250 ML IV ONE (09:00)
[2017-10-16] MEDS ORDERED: NON-FORMULARY NEW DRUG (Omeprazole [Omeprazole] 20 MG) PO SCH (09:00)
[2017-10-16] MEDS ORDERED: ATORVASTATIN CALCIUM 40 MG TAB PO SCH (09:00)
[2017-10-16] MEDS: PANTOPRAZOLE SODIUM 40 MG TAB PO SCH (09:14)
[2017-10-16] MEDS: ASPIRIN 81 MG CHEWABLE TAB PO SCH (09:14)
[2017-10-16] MEDS: MULTIVITAMINS 1 EACH TAB PO SCH (09:14)
[2017-10-16] MEDS: OMEGA-3 FATTY ACIDS 1,000 MG CAP PO SCH (09:14)
[2017-10-16] MEDS ORDERED: TORSEMIDE 10 MG TAB PO SCH (10:00)
--- NOTE | 2017-10-16 11:44 | ECHO ---
[email or web address] [address] [address] Main: [phone] Fax: Transthoracic Echocardiogram Name: SELMA HINES MR#: [id number] Study Date: 10/16/2017 Study Time: 07:36 AM Date of : 1935 Age: 82 year(s) Height: 154.9 cm (61 in.) Weight: 63.5 kg (140 lb.) BSA: 1.62 m2 Gender: Female Examination: Echo Indication: POST TAVR Image Quality: Adequate Contrast: Requested by: Jamey Santos BP: 95 mmHg/29 mmHg Heart Rate: Rhythm: Indication: POST TAVR Procedure Staff Compounder Flavorings: Nancy Cooper RDCS Reading Physician: Janet Christopher MD Requesting Provider: Jamey Santos Conclusions: Normal size left ventricle. Moderate concentric LV hypertrophy. Normal global systolic LV function. The ejection fraction is estimated to be 65-70 %. No regional wall motion abnormality. Grade 1 diastolic dysfunction (abnormal relaxation). Elevated left ventricular filling pressures.. Normal size right ventricle. Normal RV function. Moderate mitral valve regurgitation is present. Moderate mitral valve stenosis is present. Post TAVR. The prosthetic aortic valve regurgitation location is perivalvular. Mild prosthesis regurgitation. Successful TAVR deployment with mild AI and a mean gradient of 10 mmhg and max pressure gradient of 15 mmhg. The Vmax of the aortic valve is 1.9 m/s. Mild to moderate tricuspid valve regurgitation. The pulmonary artery pressure is moderately increased. PASP is 60 mmHg. No pericardial effusion. Measurements: Chambers Valvular Assessment AV/MV Valvular Assessment TV/PV Normal Normal Normal Name Value Range Name Value Range Name Value Range IVSd (2D): 1.4 cm (0.6 cm-1.1 AV meanP mmHg ( - ) TR Vmax: 3.71 mm/s ( - ) cm) HIRAM (VTI): 2.1 cm ( - ) TR PGmax: 55 mmHg ( - ) LVDd (2D): 3.3 cm (3.9 cm-5.3 MV E Vmax: 1.56 m/s ( - ) syst. PAP: 60 mmHg ( - ) cm) MV A Vmax: 1.89 m/s ( - ) PV Vmax: 1.00 m/s (0.6 m/s-0.9 LVDs (2D): 2.0 cm (2.1 cm-4 MV E/A: 0.83 ( - ) m/s) cm) Patient: SELMA HINES Study Date: 10/16/2017 Page 1 of 2 07:36 AM LVPWd (2D): 1.2 cm ( - ) MV meanP mmHg ( - ) PV PGmax: 4 mmHg ( - ) LVOTd 1.7 cm 1.7 cm mm MV PHT: 0.069 s ( - ) LVEF (BP): 62 % (>=55 %) MVA (Vmax): 1.3 m/s ( - ) EF Range: 65-70 % MVA (PHT): 3.2 s ( - ) Continued Measurements: Chambers Valvular Assessment AV/MV Valvular Assessment TV/PV Name Value Name Value Name Value LADs: 4.9 cm MV DecTime: 222 m/s CVP (est.): 5 mmHg LADs Lon.8 cm MV E' Septal: 0.05 m/s LA Area: 27.6 cm2 MV E/E' Septal: 28.60 LA Volume: 95 ml MV E/E' Lateral: 21.90 LA Volume Index: 58.6 ml/m2 MV VTI: 60.50 cm RA Area: 17.4 cm2 MR ERO: 0.390 cm2 MR PISA radius: 9 mm MR Reg. Volume: 60 ml Findings: Left Ventricle: Normal size left ventricle. Moderate concentric LV hypertrophy. Normal global systolic LV function. The ejection fraction is estimated to be 65-70 %. No regional wall motion abnormality. Grade 1 diastolic dysfunction (abnormal relaxation). Elevated left ventricular filling pressures.. Right Ventricle: Normal size right ventricle. Normal RV function. Left Atrium: Left atrial enlargement. Right Atrium: The right atrium is normal in size. Mitral Valve: Moderate mitral valve regurgitation is present. Moderate mitral valve stenosis is present. Aortic Valve: Post TAVR. Normal functioning aortic valve prosthesis. The prosthetic aortic valve is normal. The orifice motion of the prosthetic aortic valve is normal. No prosthesis stenosis. The prosthetic aortic valve regurgitation location is perivalvular. Mild prosthesis regurgitation. Successful TAVR deployment with mild AI and a mean gradient of 10 mmhg and max pressure gradient of 15 mmhg. The Vmax of the aortic valve is 1.9 m/s. Tricuspid Valve: The tricuspid valve is normal in appearance and function. Mild to moderate tricuspid valve regurgitation. The pulmonary artery pressure is moderately increased. PASP is 60 mmHg. Pulmonic Valve: The pulmonic valve is normal in appearance and function. There is no pulmonic regurgitation seen. Aorta: The aorta is normal. IVC: Not well seen. Pericardium: No pericardial effusion. No pleural effusion. Exam Comments: Technically difficult parasternal imaging. Adequate apical and subcostal images obtained. (No Signature Object) Patient: SELMA HINES Study Date: 10/16/2017 Page 2 of 2 07:36 AM [id number]
--- NOTE | 2017-10-16 15:20 | ASMTCMCOM ---
CM Note CM Note Notes: [facility], Referral sent. Date Signed: 10/16/2017 03:19 PM Electronically Signed By:Steph Levy LCSW
[2017-10-16] MEDS: ATORVASTATIN CALCIUM 40 MG TAB PO SCH (20:51)
[2017-10-16] MEDS: MONTELUKAST SODIUM 10 MG TAB PO SCH (20:51)
[2017-10-17 04:57] LABS: INR 1.1 (0.83-1.16); PROTIME(PATIENT) 14.4 SEC (12.0-15.0)
[2017-10-17] MEDS: ACETAMINOPHEN 325 MG TAB PO SCH ×3 (06:03→17:13)
--- NOTE | 2017-10-17 06:56 | SOAPPROG ---
SOAP Progress Note Assessment/Plan: POD #2: TAVR with access via graft through left axillary artery - Wound soft and incision C/D/I with appropriate TTP - Continue mgmt as per cardiology - Clear for discharge, wound care instructions in DC plan section - F/u appt to be made by TAVR coordinator Subjective: Feels tired. Left chest wound with manageable pain. Objective: Vital Signs Temp Pulse Resp BP Pulse Ox 36.8 C 92 18 117/40 L 94 10/17/17 04:00 10/17/17 04:00 10/17/17 04:00 10/17/17 04:00 10/17/17 04:00 Laboratory Results 10/17/17 04:20 10/16/17 10/17/17 10/18/17 05:59 05:59 05:59 Intake Total 800 1650 Output Total 900 700 Balance -100 950 PT 14.4 SEC (12.0-15.0) 10/17/17 04:20 INR 1.10 (0.83-1.16) 10/17/17 04:20 Physical Exam - Physical Exam Cardiac/Chest: other (left chest wound C/D/I and soft with mild TTP) ICD10 Worksheet Patient Problems: Problems Problem Status Onset Aortic stenosis Acute
[2017-10-17 07:02] LABS: PLATELET COUNT 148 10^3/uL (150-400)
--- NOTE | 2017-10-17 07:12 | PDCARPN ---
Cardiology Progress Note Chief Complaint: s/p TAVR Assessment/Plan: Assessment: s/p TAVR Plan: 10/16/17 07:06 doing well NSR sites stable OOB transfer to floor hold plavix given reduced Hgb check labs in AM 10/17/17 07:09 feels slightly fatigued BP/HR stable Echo- NL EF, NL TAVR, mild PV leak OOB Patient would like to go to rehab facility Hgb 8.6. Given fatigue/increased HR with ambulation, will transfuse 1 u PRBC Plan d/c to rehab when bed available Subjective: c/o fatigue Reviewed/Discussed With: multidisciplinary team Time Spent With Patient: 25 min Objective: Vital Signs (8 Hrs) Temp Pulse Resp BP Pulse Ox 10/17/17 04:00 36.8 C 92 18 117/40 L 94 Intake/Output (24 Hrs) 10/16/17 10/17/17 10/18/17 05:59 05:59 05:59 Intake Total 800 1650 Output Total 900 700 Balance -100 950 Intake: Oral (ml) 800 1400 IV Infused (ml) 250 Ns 250 ml @ 1500 mls/hr 250 IV ONCE ONE Rx#: [id number] Output: Urine (ml) 900 700 Bedside Commode 900 Toilet 700 Other: Weight 63.503 kg 66.3 kg 64.4 kg Number of Voids Bedside Commode 1 Toilet 1 Result Diagrams: 10/17/17 04:20 10/17/17 04:20 - Physical Exam Constitutional: healthy appearing Eyes: PERRL Ears, Nose, Mouth, Throat: moist mucous membranes Cardiovascular: regular rate and rhythm Peripheral Pulses: 1+: femoral (R), femoral (L) Respiratory: clear to auscultate bilat Gastrointestinal: normoactive bowel sounds Genitourinary: no suprapubic tenderness Skin: no rashes Musculoskeletal: no muscular tenderness Neurologic: AAOx3 ICD10 Worksheet Patient Problems: Problems Problem Status Onset Aortic stenosis Acute - ICD10 Problem Qualifiers (1) Aortic stenosis Qualifiers: Cardiac valve disease etiology: nonrheumatic Qualified Code(s): I35.0 - Nonrheumatic aortic (valve) stenosis
[2017-10-17] MEDS: OMEGA-3 FATTY ACIDS 1,000 MG CAP PO SCH (08:06)
[2017-10-17] MEDS: ASPIRIN 81 MG CHEWABLE TAB PO SCH (08:07)
[2017-10-17] MEDS: MULTIVITAMINS 1 EACH TAB PO SCH (08:07)
[2017-10-17] MEDS: PANTOPRAZOLE SODIUM 40 MG TAB PO SCH (08:07)
--- NOTE | 2017-10-17 10:57 | ASMTCMCOM ---
CM Note CM Note Notes: CM spoke w/ Renu Merrill, RN regarding d/c POC. The plan is to d/c tomorrow. CM met w/ pt and daughter in law for dispo planning. CM informed pt and DIL that [facility] have accepted. Pt would like to use transportation provided by [facility]. Pt uses o2 at baseline. CM to follow. Plan: [facility] Date Signed: 10/17/2017 10:57 AM Electronically Signed By:RORY Greer
[2017-10-17] MEDS: MONTELUKAST SODIUM 10 MG TAB PO SCH (22:16)
[2017-10-17] MEDS: ATORVASTATIN CALCIUM 40 MG TAB PO SCH (22:16)
[2017-10-18 04:12] LABS: PLATELET COUNT 161 10^3/uL (150-400)
[2017-10-18 04:27] LABS: INR 1.07 (0.83-1.16); PROTIME(PATIENT) 14.1 SEC (12.0-15.0)
[2017-10-18] MEDS: ACETAMINOPHEN 325 MG TAB PO SCH ×2 (06:14→06:21)
[2017-10-18] MEDS: MULTIVITAMINS 1 EACH TAB PO SCH (08:10)
[2017-10-18] MEDS: ASPIRIN 81 MG CHEWABLE TAB PO SCH (08:10)
[2017-10-18] MEDS: OMEGA-3 FATTY ACIDS 1,000 MG CAP PO SCH (08:10)
[2017-10-18] MEDS: PANTOPRAZOLE SODIUM 40 MG TAB PO SCH (08:10)
--- NOTE | 2017-10-18 10:28 | PDIAF ---
- Diagnosis Code Status: Full Code - Medication Management Discharge Medications: Medications to Continue on Transfer Aspirin [Aspirin 81mg (*)] 81 mg PO DAILY 09/27/17 [Last Taken 10/14/17] Atorvastatin Calcium [Lipitor 40 mg (*)] 40 mg PO DAILY 09/27/17 [Last Taken ] Montelukast Sodium [Singulair 10 mg (*)] 10 mg PO HS 09/27/17 [Last Taken ] Multivitamins [Multivitamin (*)] 1 each PO DAILY 09/27/17 [Last Taken 10/02/17] [place]-3 Fatty Acids [Fish Oil 1000 mg (*)] 2,000 mg PO DAILY 09/27/17 [Last Taken 10/02/17] Omeprazole 20 mg PO DAILY 09/27/17 [Last Taken 10/02/17] Acetaminophen [Tylenol 325mg (*)] 650 mg PO Q6HRS tab 10/18/17 [Last Taken Unknown] Ibuprofen [Motrin (*)] 800 mg PO Q8HRS PRN tab 10/18/17 [Last Taken Unknown] Discharge Medications: Refer to the Discharge Home Medication list for PRN reason. - Orders Oxygen: 3 lpm via [place] Diet Recommendation: cardiac -low fat low salt Additional Instructions: Chest Wound - Wash daily with soap and water (OK to shower) - Leave open to air - Do not submerge in a bath until fully healed (4-6 weeks) - Labs/Radiology BMP Date: 10/22/17 CBC w/diff Date: 10/22/17 - Follow Up Care Current Providers and Referrals: Manoj Villafuerte MD [Primary Care Provider] - Brian Forbes DO [Doctor of Osteopathy] - Jamey Santos MD [Medical Doctor] - (Follow up with Dr Santos on 2017 at 10:30 am)
[2017-10-18 12:18] VITALS: BP 120/56
--- NOTE | 2017-10-18 13:09 | GDS ---
[f rep st] DISCHARGE SUMMARY ADMISSION DIAGNOSES: 1. Severe aortic stenosis. 2. Restrictive lung disease. 3. Severe kyphoscoliosis. 4. Peripheral edema. 5. Coronary artery disease. 6. Hyperlipidemia. DISCHARGE DIAGNOSES: 1. Aortic stenosis. 2. Status post transcatheter aortic valve replacement. 3. Restrictive lung disease. 4. Severe kyphosis. 5. Coronary artery disease. 6. Peripheral edema. 7. Postoperative anemia. PROCEDURES PERFORMED DURING HOSPITALIZATION: 1. Transcatheter aortic valve replacement procedure. 2. Transesophageal echocardiogram. 3. Echocardiogram. BRIEF HISTORY: Please see Dr. Santso and Dr. Forbes's history and physicals. Briefly: The patient is an 82-year-old female with known history of severe aortic stenosis. She had been noticing worseni ng leg edema, and shortness of breath over the last 5 months. She was evaluated by both Dr. Leidy morales d Dr. Santos, and felt to be an appropriate candidate to undergo TAVR procedure. HOSPITAL COURSE: Patient admitted through CVC, prepped for procedure, and taken to the cardiovascula r lab there. Through a left subclavian artery access with open cutdown and graft placement, she under went a TAVR procedure with a Medtronic CoreValve Evolut R 26 mm valve. No apparent complications. P mac was transferred to the intensive care unit for overnight observation. Echocardiogram done the following morning, the 8th, showing moderate to concentric LVH, normal LV, LV global systolic functi on. EF was estimated at 65%-70% with no regional wall motion abnormalities. Diastolic dysfunction w as noted, prosthetic aortic valve regurgitation was noted located in the perivalvular place. The proc edure was noted to be successful with mild AI and mean gradient of 10 mm, max pressure gradient of 15 mm with V-max of 1.9 mm/second. Postoperatively, the patient was also noted to be mildly anemic but doing fine, and mildly hypotensiv e. She was taken off for diuretic therapy of torsemide and not restarted. Yesterday, with her H and H dripping down to 8.6, hematocrit 26.9, she was given 1 unit of packed red blood cells today. She h as been up and walking the unit and has been maintaining on continuous cardiac monitoring with no arr hythmias. PHYSICAL EXAMINATION: GENERAL: Done today, short statured, elderly female, alert, oriented to perso n, place, time, and situation. Appears to be in no acute distress. VITAL SIGNS: Current vital sign s are blood pressure of 128/47, heart rate of 83, sinus rhythm on the monitor, respirations 16, satur ating 97% on 3 L nasal cannula. HEENT: Head is normocephalic. Lips and tongue are pink and moist w ith no signs of cyanosis. Conjunctivae pink. NECK: Trachea is midline, +2 carotid pulses bilateral . No jugular vein distention. No carotid bruits noted. RESPIRATORY: Lungs are diminished in bases bilateral, no rhonchi, rales or wheezes, no accessory muscle use, no intercostal muscle retraction n oted. CARDIAC: Regular rate, regular rhythm, S1, S2, 1-2/6 systolic murmur noted along the upper st ernal border. ABDOMEN: Soft, nontender, bowel sounds x4 quadrants, no organomegaly, no palpable mas ses. SKIN: [place], warm and dry. No cyanosis, no clubbing, trace to +1 peripheral edema bilateral low er extremities to knees. VASCULAR: +2 carotids bilateral, +2 radials bilateral, +1 posterior tibial pulses bilateral. Surgical insertion site, left anterior chest incision intact with surgical glue, n o redness, swelling, drainage, check ecchymosis or hematoma. No signs of infection. LABORATORY STUDIES: Laboratory studies today show WBC of 5.23, hemoglobin 10.1, hematocrit 30.4, shaggy telet count of 161. INR today was noted to be 1.07. Sodium yesterday was 134, potassium 4.0, chloride 99, CO2 30, BUN 17, creatinine 0.6, glucose 90, calcium 8.3. STUDIES: TAVR procedure as mentioned above, echocardiogram as mentioned above, please see ROBERT report , for intra procedure pre and post valvular readings. DISCHARGE DISPOSITION: [facility]. She is under activity restrictions of not lifting more than 10 pounds for the next week and no stren uous activity for the next 2 weeks. DISCHARGE MEDICATIONS: Please see discharge med reconciliation sheet. Note, due to her anemia, she has not been started on Plavix, but continues on anti-platelet therapy of aspirin. Also, her home to rsemide dose has been held. DISCHARGE INSTRUCTIONS: Post TAVR discharge instructions went over with the patient. Including nando toring for signs of infection, medication compliancy, activity restrictions, bleeding precautions and medication. The patient has a followup appointment scheduled with Dr. Santos and Leidy on October 13. I have asked that she have blood work drawn including a CBC and a BMP the day before her office vis it. At the time of discharge, patient verbalizes understanding of all questions or concerns. She fabian s been told that if any problems or concerns come up, she is to notify our office or return to the [facility]. Total time spent on discharge greater than 30 minutes. /[id number]/MODL
--- NOTE | 2017-10-18 15:35 | ASDISCHSUM ---
Discharge Information Plan Status:SNF Medically Cleared to Leave:10/18/2017 Discharge Date:10/18/2017 02:00 PM CM D/C Disposition:Assisted Facility ADT D/C Disposition:Assisted Facility Projected Discharge Date:10/18/2017 11:00 AM Transportation at D/C:Wheelchair Van Discharge Delay Reason: Follow-Up Date:10/18/2017 11:00 AM Discharge Slot: Final Diagnosis:TAVR Placement Information Referral Type:*Correction/SNF Referral ID:[id number] Provider Name:[facility] Address 1:[address] Address 2: City:[place] Selection Factors: State:[place] Patient Contact Information Contact Name:GERSON Relationship:Friend Address:[address] Work Phone: [facility]:[place] Alternate Phone: [facility]/Zip Code:[place] [address] Email: Financial Information Financial Class:Medicare Primary Plan Desc:MEDICARE INPATIENT Primary Plan Number:[id number] Secondary Plan Desc:AARP/MDR SUPPLEMENT Secondary Plan Number:[id number] Assessment Information [facility] CM Progress Note CM Note CM Note Notes: 82yr old female admitted for Aortic stenosis, Hx of cardiac and pulmonary issues. Had TAVR procedure. CM to follow, may not have discharge needs. Lives at [facility]. Her son Sherif is her MPOA. Date Signed: 10/15/2017 04:20 PM Electronically Signed By:Steph Levy LCSW [facility] CM Progress Note CM Note CM Note Notes: [facility]. Date Signed: 10/16/2017 03:19 PM Electronically Signed By:Steph Levy LCSW [facility] Progress Note CM Note CM Note Notes: CM spoke w/ Renu Merrill RN regarding d/c POC. The plan is to d/c tomorrow. CM met w/ pt and daughter in law for dispo planning. CM informed pt and DIL that [facility] have accepted. Pt would like to use transportation provided by [facility]. Pt uses o2 at baseline. CM to follow. Plan: [facility] Date Signed: 10/17/2017 10:57 AM Electronically Signed By:RORY Greer Case Management Discharge Plan Note Case Management Discharge Discharge Order Complete? Answers: Yes Patient to Obtain Answers: Other Notes: [facility] Medications Transportation Arranged Answers: Other Notes: [facility] Transport will Pick (Date 10/18/2017 01:30 PM & Time) MARGIEALA Complete Answers: No Case Management Transport Answers: Yes Form Complete Faxed Final Orders Answers: Yes Agency/Facility Transfer Answers: Yes Report Printed & Faxed to Receiving Agency Family Notified Answers: Yes Discharge Comments Notes: CM discussed case w/ MARILU Adkins and ROEL Lock. Pt is being discharged today. DC orders sent to [facility]. CM provided ROEL Lock w/ phone number to give report. CM met w/ pt and confirmed d/c plans. CM available for changes. Plan: [facility] Date Signed: 10/18/2017 10:31 AM Electronically Signed By:RORY Greer Intervention Information Intervention Type:*IM-Signed Date of Service:10/18/2017 12:12 PM Patient Type:Inpatient Staff Member:Starr Morales Hours: Discipline: Severity: Comment:
== END 2017-10-18 14:00 | DRG 267 ==
LOC: FCATH 06:08 → F2N 10:38 → F2W 10-16 13:29
PROVIDERS: ADMIT Internal Medicine Cardiovascular Disease; ATTEND Internal Medicine Cardiovascular Disease
PROC: 02RF38Z Replacement of Aortic Valve with Zooplastic Tissue, Percutaneous Approach (ICD-10-PCS; principal; 2017-10-15 07:30)
PROC: B246ZZ4 Ultrasonography of Right and Left Heart, Transesophageal (ICD-10-PCS; principal; 2017-10-15 07:30)
PROC: 5A2204Z Restoration of Cardiac Rhythm, Single (ICD-10-PCS; principal; 2017-10-15 07:30)
PROC: 30233N1 Transfusion of Nonautologous Red Blood Cells into Peripheral Vein, Percutaneous Approach (ICD-10-PCS; 2017-10-17)
DX: I35.0 Nonrheumatic aortic (valve) stenosis (principal); Z00.6 Encounter for examination for normal comparison and control in clinical research program; I48.92 Unspecified atrial flutter; D64.89 Other specified anemias; M41.84 Other forms of scoliosis, thoracic region; J98.4 Other disorders of lung; I10 Essential (primary) hypertension; I25.10 Atherosclerotic heart disease of native coronary artery without angina pectoris; I25.2 Old myocardial infarction; I34.0 Nonrheumatic mitral (valve) insufficiency; K21.9 Gastro-esophageal reflux disease without esophagitis
CPT/HCPCS: 97116-GP; 97161-GP; 97165-GO; 97530-GP; 97535-GO; C1760; C1768; C1769; G8978-GP-CJ; G8979-GP-CI; G8987-GO-CJ; G8988-GO-CI; J0171; J0282; J0330; J0690; J1644; J2370; J2405; J2704; J2720; J3010; P9016; Q9967

== ENCOUNTER 2017-10-29 06:39 | Inpatient (IN) | payer OTHER, MEDICARE ==
--- NOTE | 2017-10-29 06:47 | EDPHY ---
H & P Time Seen by Provider: 10/29/17 06:40 HPI/ROS: CHIEF COMPLAINT: Shortness of breath HISTORY OF PRESENT ILLNESS: Patient was discharged October 18 of this year after having a transcatheter aortic valve replacement on October 15 by Tom. This morning at 2:00 a.m. She awakened with severe shortness of breath and was brought in by EMS on CPAP. She had increased her home oxygen from 3-4 L nasal cannula. Patient says she has a little bit of a cough but no fever or chills and no chest pain. Symptoms worse with exertion and worse lying down. REVIEW OF SYSTEMS: Further history and review of systems is limited by the patient's shortness of breath but she denies chest pain or cough or fever as above. At 7:00 a.m. She is now able to breathe more easily and says that she has had more leg swelling the past couple of days. She gained 3 lb from 141-144 as of yesterday. Remainder of 10 point review of systems otherwise negative. PAST MEDICAL HISTORY: History and physical dated 09/26/2017 personally reviewed includes aortic stenosis, coronary disease, COPD, peripheral neuropathy, severe kyphoscoliosis with restrictive lung disease, left leg peripheral edema. Social history: [facility] Blood pressure 185/70, heart rate 106, temperature 36 degrees, O2 sat 85% initially on noninvasive ventilation. General Appearance: Alert, follows commands. Eyes: No scleral icterus. ENT, Mouth: Normal mucous membranes. No angioedema. Respiratory: Decreased breath sounds with diminished breath sounds and crackles bilaterally at the bases. Cardiovascular: Regular rate and rhythm. Gastrointestinal: Abdomen is soft and non tender. Neurological: Alert, face symmetric, normal motor and sensory in extremities. Skin: Warm and dry, no rashes. Musculoskeletal: 1 to 2+ bilateral peripheral edema Psychiatric: Not agitated. Emergency Department course/MDM: Patient initially arrived at 83% on CPAP, but at 7:00 a.m. Is now 99% on noninvasive ventilation. Initial chest x-ray appears show pulmonary edema with severe kyphoscoliosis. Initial chest x-ray shows left bundle branch block and PVC without ST elevation ischemic changes. Plan for continued respiratory support, patient is afebrile and pneumonia is unlikely, cardiology consultation with echocardiogram and probable ICU admission. Discussed with Harper, cardiology will consult, please get stat echo. 736: Hold on CT scan for now, echocardiogram in progress, troponin noted to be elevated along with BNPs 1700. Will defer on CT scanning to after cardiology evaluation this morning. Echo report reviewed, official reading is 2 perivalvular leaks with normal RV size and function, EF 70% with no regional wall motion abnormalities in the LV, PE or ACS much less likely than valve problem. Tom notified via civil laboratory technician. Smoking Status: Former smoker Constitutional: Initial Vital Signs O2 Sat (%) 97 10/29/17 06:40 O2 Delivery Mode Bi-Pap O2 (L/minute) 15 Allergies/Adverse Reactions: bacitracin [From Neosporin] Allergy (Unknown, Verified 10/29/17 06:52) bacitracin zinc [From Neosporin] Allergy (Unknown, Verified 10/29/17 06:52) gramicidin D [From Neosporin] Allergy (Unknown, Verified 10/29/17 06:52) neomycin sulfate [From Neosporin] Allergy (Unknown, Verified 10/29/17 06:52) polymyxin B [From Neosporin] Allergy (Unknown, Verified 10/29/17 06:52) polymyxin B sulfate [From Neosporin] Allergy (Unknown, Verified 10/29/17 06:52) Sulfa (Sulfonamide Antibiotics) Allergy (Unknown, Verified 10/29/17 06:52) Home Medications: Medication Instructions Recorded Aspirin [Aspirin 81mg (*)] 81 mg PO DAILY 09/27/17 Atorvastatin Calcium [Lipitor 40 40 mg PO DAILY 09/27/17 mg (*)] Montelukast Sodium [Singulair 10 10 mg PO HS 09/27/17 mg (*)] Multivitamins [Multivitamin (*)] 1 each PO DAILY 09/27/17 [place]-3 Fatty Acids [Fish Oil 1000 2,000 mg PO DAILY 09/27/17 mg (*)] Omeprazole 20 mg PO DAILY 09/27/17 Acetaminophen [Tylenol 325mg (*)] 650 mg PO Q6HRS tab 10/18/17 Ibuprofen [Motrin (*)] 800 mg PO Q8HRS PRN tab 10/18/17 Lisinopril 5 mg PO 10/29/17 Torsemide 10 mg PO 10/29/17 Medical Decision Making - Diagnostics EKG Interpretation: 12-lead EKG interpreted by me; official reading is in trace master. My interpretation is sinus rhythm with PVC and left bundle branch block. Imaging Results: Imaging Impressions Chest X-Ray 10/29/17 06:46 Impression: Status post TAVR with interim development of interstitial edema with bibasilar areas of pleural-parenchymal consolidation. Chest x-ray personally interpreted at 7:00 a.m. Shows kyphoscoliosis with bilateral pulmonary edema. Imaging: I viewed and interpreted images myself Differential Diagnosis: Differential diagnosis considered for shortness of breath including but not limited to valve problem, pulmonary infectious process, COPD, asthma, pulmonary embolus and congestive heart failure. Consult/Admit Bed Type: [facility] 706am Critical Care Time: Critical care time spent by me, Dr. Walter, exclusively with the care of this patient was 30 minutes, exclusive of PA or WARP DRAWER time and exclusive of separate procedures. The organ system at risk was cardiopulmonary and I ordered supplemental oxygen and noninvasive ventilation, multiple diagnostics, consultation with hospitalist and Cardiology to stabilize the patient and prevent worsening of the patient's condition. - Data Points Laboratory Results: Laboratory Results 10/29/17 06:35 10/29/17 06:35 10/29/17 10/29/17 10/29/17 06:35 06:35 06:35 WBC 10.88 10^3/uL H 10^3/uL (3.80-9.50) RBC 4.10 10^6/uL L 10^6/uL (4.18-5.33) Hgb 12.8 g/dL g/dL (12.6-16.3) Hct 39.2 % % (38.0-47.0) MCV 95.6 fL fL (81.5-99.8) MCH 31.2 pg pg (27.9-34.1) MCHC 32.7 g/dL g/dL (32.4-36.7) RDW 13.8 % % (11.5-15.2) Plt Count 270 10^3/uL 10^3/uL (150-400) MPV 11.0 fL fL (8.7-11.7) Neut % (Auto) 55.6 % % (39.3-74.2) Lymph % (Auto) 32.1 % % (15.0-45.0) [place] % (Auto) 9.7 % % (4.5-13.0) Eos % (Auto) 1.7 % % (0.6-7.6) Baso % (Auto) 0.6 % % (0.3-1.7) Nucleat RBC Rel Count 0.0 % % (0.0-0.2) Absolute Neuts (auto) 6.06 10^3/uL 10^3/uL (1.70-6.50) Absolute Lymphs (auto) 3.49 10^3/uL H 10^3/uL (1.00-3.00) Absolute Monos (auto) 1.06 10^3/uL H 10^3/uL (0.30-0.80) Absolute Eos (auto) 0.18 10^3/uL 10^3/uL (0.03-0.40) Absolute Basos (auto) 0.06 10^3/uL 10^3/uL (0.02-0.10) Absolute Nucleated RBC 0.00 10^3/uL 10^3/uL (0-0.01) Immature Gran % 0.3 % % (0.0-1.1) Immature Gran # 0.03 10^3/uL 10^3/uL (0.00-0.10) PT 12.4 SEC SEC (12.0-15.0) INR 0.90 (0.83-1.16) D-Dimer 1.56 ug/mLFEU H ug/mLFEU (0.00-0.50) Sodium 137 mEq/L mEq/L (135-145) Potassium 3.8 mEq/L mEq/L (3.3-5.0) Chloride 92 mEq/L L mEq/L (97-110) Carbon Dioxide 32 mEq/l H mEq/l (22-31) Anion Gap 13 mEq/L mEq/L (8-16) BUN 11 mg/dL mg/dL (7-23) Creatinine 0.5 mg/dL L mg/dL (0.6-1.0) Estimated GFR > 60 Glucose 125 mg/dL H mg/dL (70-100) Calcium 9.2 mg/dL mg/dL (8.5-10.4) Troponin I 0.147 ng/mL H ng/mL (0.000-0.034) NT-Pro-B Natriuret Pep 1790 pg/mL H pg/mL (0-450) Departure - Departure Disposition: [facility] Inpatient Acute Clinical Impression: Pulmonary edema Qualifiers: Chronicity: acute Qualified Code(s): J81.0 - Acute pulmonary edema Condition: Serious
[2017-10-29 06:54] LABS: PLATELET COUNT 270 10^3/uL (150-400)
--- NOTE | 2017-10-29 06:56 | CPEKG ---
Heart Rate: 94 RR Interval: 638 P-R Interval: 196 QRSD Interval: 130 QT Interval: 404 QTC Interval: 506 P [place]: 50 QRS [place]: 3 T Wave [place]: 155 EKG Severity - ABNORMAL ECG - EKG Impression: SINUS RHYTHM EKG Impression: MULTIFORM VENTRICULAR PREMATURE COMPLEXES EKG Impression: LEFT BUNDLE BRANCH BLOCK Electronically Signed By: Sebastian Walter 29-Oct-2017 06:59:18
[2017-10-29 07:01] LABS: INR 0.9 (0.83-1.16); PROTIME(PATIENT) 12.4 SEC (12.0-15.0)
[2017-10-29] MEDS ORDERED: IOPAMIDOL (ISOVUE 370) 100 ML BTL IV ONE (07:21)
[2017-10-29] MEDS ORDERED: ONDANSETRON 4 MG/2 ML VIAL IVP PRN (07:50)
[2017-10-29] MEDS ORDERED: ACETAMINOPHEN 325 MG TAB PO PRN (07:50)
[2017-10-29] MEDS ORDERED: FUROSEMIDE 100 MG/10 ML VIAL IVP ONE (08:43)
[2017-10-29] MEDS ORDERED: hydrALAZINE 20 MG/ML VIAL IVP PRN (08:45)
[2017-10-29] MEDS ORDERED: FUROSEMIDE 100 MG/10 ML VIAL IV ONE (08:45)
--- NOTE | 2017-10-29 08:58 | ECHO ---
[email or web address] [address] [address] Main: [phone] Fax: Transthoracic Echocardiogram Name: SELMA HINES MR#: [id number] Study Date: 10/29/2017 Study Time: 07:27 AM Date of : 1935 Age: 82 year(s) Height: 154.9 cm (61 in.) Weight: 60.78 kg (134 lb.) BSA: 1.59 m2 Gender: Female Examination: Indication: STAT echo in ER due to SOB; S/P TAVR Image Quality: Contrast: Requested by: Sebastian Walter BP: 165 mmHg/61 mmHg Heart Rate: Rhythm: Indication: STAT echo in ER due to SOB; S/P TAVR Procedure Staff [employer] Sales Representative: Sofi Joshi RD Reading Physician: Jamey Santos MD Requesting Provider: Conclusions: Global hypercontractility of the left ventricle. EF is 70 %. Severe mitral valve regurgitation is present. Two mild-moderate perivalvular leaks noted. No significant gradient across the TAVR. Mild to moderate tricuspid valve regurgitation. Right ventricular systolic pressure measures 58mmHg. Measurements: Chambers Valvular Assessment AV/MV Valvular Assessment TV/PV Normal Normal Normal Name Value Range Name Value Range Name Value Range LVEF (MOD4): 70 % (>=55 %) AV Vmax: 1.63 m/s (1 m/s-1.7 TR Vmax: 3.64 mm/s ( - ) m/s) TR PGmax: 53 mmHg ( - ) AV maxP mmHg ( - ) syst. PAP: 58 mmHg ( - ) AV meanP mmHg ( - ) LVOT Vmax: 1.18 m/s (0.7 m/s-1.1 m/s) AR (PHT): 298 ms ( - ) MV maxP mmHg ( - ) MV meanP mmHg ( - ) MV PHT: 0.085 s ( - ) MVA (PHT): 2.6 s ( - ) Continued Measurements: Valvular Assessment AV/MV Valvular Assessment TV/PV Name Value Name Value MV VTI: 61.40 cm CVP (est.): 5 mmHg AR Vmax: 3.26 cm/s Patient: SELMA HINES Study Date: 10/29/2017 Page 1 of 2 07:27 AM Findings: Left Ventricle: Normal size left ventricle. Global hypercontractility of the left ventricle. EF is 70 %. No regional wall motion abnormality. Right Ventricle: Grossly normal RV size and function, however views were limited. Left Atrium: Left atrial enlargement. Right Atrium: The right atrium is normal in size. Mitral Valve: Severe mitral valve regurgitation is present. Moderate mitral annular calcification with thickened leaflets. Mean gradient across the valve 10 mmHg. . Aortic Valve: Post TAVR. Two mild-moderate perivalvular leaks noted. No significant gradient across the TAVR. Tricuspid Valve: Tricuspid valve not well visualized. Mild to moderate tricuspid valve regurgitation. Right ventricular systolic pressure measures 58mmHg. The pulmonary artery pressure is moderately increased. Pulmonic Valve: Pulmonary valve not well visualized. IVC: The IVC is normal sized. Pericardium: Trivial pericardial effusion. (No Signature Object) Patient: SELMA HINES Study Date: 10/29/2017 Page 2 of 2 07:27 AM [id number]
[2017-10-29] MEDS: NITROGLYCERIN 2% 1 GM PACKET TP SCH ×3 (09:01→18:07)
--- NOTE | 2017-10-29 09:42 | GCON ---
[f rep st] CONSULTATION CARDIOLOGY CONSULTATION DATE OF CONSULTATION: 10/29/2017 CHIEF COMPLAINT: Shortness of breath. HISTORY OF PRESENT ILLNESS: This is an 82-year-old female who underwent transaxillary TAVR here at [facility] approximately 2 weeks ago. The patient was discharged uneventfully and was a ctually seen in the office 5 days ago, doing quite well. The patient indicates though in the last 48 hours she has been gaining weight at home and noticed that her breathing had gotten more labored, es pecially with lying flat. The patient came to the emergency room where she was found to have florid pulmonary edema with elevated blood pressure. Troponin was mildly elevated at 0.13 with elevated BNP . The patient denied any chest pain, however, a stat echo done at bedside showed what appeared to be hyperdynamic LV function with EF of 70%. Normally functioning TAVR valve with 2 mild to moderate pe rivalvular leaks. Of note, she did have what appeared to be severe mitral regurgitation. However, t he mitral valve was intact and did not show any evidence of torn cords or leaflets. The patient was placed on a BiPAP mask and has yet to be administered Lasix, but is not feeling any worse at this poi nt. ECG shows sinus rhythm with nonspecific T-wave changes. PAST MEDICAL HISTORY: Significant for kyphosis, restrictive lung disease, severe aortic stenosis, tr eated with transaxillary TAVR. HOME MEDICATIONS: Please see patient's attached home medication list. SOCIAL HISTORY: She is a volunteer here at the hospital. No smoking, no drinking. FAMILY HISTORY: Noncontributory. REVIEW OF SYSTEMS: Patient denies any vision change. No headache, no chest pain and no throat pain. No back pain. Does indicate active shortness of breath at rest, worse when lying supine. No abdom inal pain. No lower extremity pain. No neurologic deficits. PHYSICAL EXAMINATION: VITAL SIGNS: Patient is afebrile at 96, blood pressure 170/90 with a heart ra te of 84, respirations 20, saturating 93% on a BiPAP. HEENT: Pupils equal, round, reactive to light and accommodation. Extraocular muscles intact. CARDIOVASCULAR: Tachycardic S1, S2. There is a 2/ 6 systolic murmur heard best at the apex. LUNGS: Reveal crackles at the bases bilaterally. ABDOMEN : Soft, nontender. No guarding. EXTREMITIES: No clubbing, no cyanosis. There is mild pitting nikolay ma lower extremities. NEUROLOGIC: The patient is alert and orient x3. LABORATORY VALUES: Currently show white cells of 10, hemoglobin 12.8, hematocrit 39.2, platelet coun t 270. INR of 0.9. D-dimer 1.5. Chemistry: Sodium 137, potassium 3.8, chloride 92, bicarb 32, BUN 11, creatinine 0.5, troponin 0.14. NT proBNP of 1700. Chest x-ray shows bilateral congestive hall es consistent with pulmonary edema. ASSESSMENT/PLAN: Shortness of breath. At this time the patient appears to be in pulmonary edema. H er EF is hyperdynamic. Diastolic dysfunction appears to be a component of her underlying issues. Ad ditionally, her blood pressure is elevated, which is contributing to her underlying worsening mitral regurgitation. We will aggressively medically manage the patient at this point. We will administer 80 IV Lasix now as well as place a Montgomery. If the patient responds appropriately we will reduce this level to 40 IV twice daily and remove the Montgomery as soon as the patient is somewhat ambulatory and off the BiPAP. We will additionally place a nitroglycerin patch and use IV hydralazine for blood pressu re control. We will keep a close eye on the patient's diuresis status as we do not want to over diur yolanda her given her hyperdynamic EF. Additionally, we also want to be cognizant of keeping her blood p ressure well controlled as this will most likely help her underlying mitral regurgitation shortness o f breath. Her TAVR valve is functioning appropriately. There are 2 mild to moderate perivalvular leaks, james r, she did have the perivalvular leaks noted on prior echo and there was no need for any intervention at this point for these issues. /[id number]/MODL
--- NOTE | 2017-10-29 10:02 | GHP ---
[f rep st] HISTORY AND PHYSICAL DATE OF ADMISSION: 10/29/2017 CHIEF COMPLAINT: Shortness of breath. HISTORY: The patient is an 82-year-old female, who underwent a TAVR on October 15 for severe aortic steno sis. She was doing well post procedure, except for development of worsening shortness of breath for the last couple of days. She denies any chest pain. She has had a mild worsening lower extremity ed aundrea and possible weight gain. She does admit to increased salt in her diet recently. At 2 o'clock t his morning. She awoke with acute onset of severe shortness of breath and 911 was called. She arriv ed to the emergency room in extremis on CPAP. She was 85% on 15 L non-rebreather and has subsequentl y been placed on BiPAP, although still with some ongoing distress. She is now being admitted to the ICU. She is awake, alert and conversant, answering questions on BiPAP as best she can. PAST MEDICAL HISTORY: 1. Severe kyphoscoliosis. 2. 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 3. Coronary artery disease. 4. Hyperlipidemia. 5. Venous stasis ulcers. 6. Hypertension. 7. Peripheral neuropathy. MEDICATIONS: Please see computer record for full detailed list. ALLERGIES: Bacitracin and sulfa. SOCIAL HISTORY: Distant smoking, quit in 1994. No alcohol. Lives in assisted living at the [facility]. COR STATUS: Yes to intubation, but no to CPR. REVIEW OF SYSTEMS: Complete review of systems obtained. Review of systems negative for constitution al, HEENT, GI, pulmonary, cardiovascular, , hematology, skin, muscular, endocrine, psych, except fo r positives as noted in HPI. FAMILY HISTORY: Reviewed, noncontributory to presenting complaint. PHYSICAL EXAMINATION: GENERAL: This is a well-developed, well-nourished female, sitting on BiPAP in respiratory distress. VITAL SIGNS: Temp is 36.0, pulse 106, respirations 24, blood pressure is 185 /70, satting 85% on 15 L, 95% on BiPAP. EYE: Normal conjunctivae. Pupils round and reactive to lig ht. ENT: Normal ears and nose. Hearing intact. NECK: Trachea midline, although she does have sev ere kyphoscoliosis. No thyromegaly. CHEST: Increased respiratory effort. LUNGS: Bibasilar rales. CARDIOVASCULAR SYSTEM: Tachycardic, positive murmur. 1+ lower extremity edema. Positive JVD. AB DOMEN: Soft, nontender. No hepatosplenomegaly. SKIN: Warm, dry, intact. No rash. MUSCULOSKELETA L: No cyanosis or clubbing. Strength 5/5 upper and lower extremities. NEUROLOGIC: Cranial nerves intact. Normal sensation to light touch. PSYCH: Alert and oriented x3. Normal affect. Normal denton gment. Normal memory. LABORATORY DATA: White count 10.88, hematocrit 39.2, platelets 270. Sodium 137, potassium 3.8, chlo ride 92, bicarb 32, BUN 11, creatinine 0.5, glucose 125, BNP is 1790. D-dimer is 1.56. Troponin is 0.147. EKG viewed by me, my personal interpretation is normal sinus rhythm with left bundle branch b lock. Chest x-ray, personally reviewed, shows severe kyphoscoliosis, increased infiltrates suspected due to congestive heart failure. Echocardiogram shows an EF of 70%. Severe MR. No gradient across the TAVR. Right ventricular systolic pressure is 58 mmHg. ASSESSMENT AND PLAN: 1. Acute respiratory failure. Now doing better on BiPAP. Pulmonary edema is the etiology of her di stress. She is being started on intravenous Lasix and anticipate improvement with that. 2. Recent transcatheter aortic valve replacement. Her valve looks okay on echocardiogram. 3. Acute diastolic congestive heart failure. Treatment will be blood pressure and volume control, i ntravenous hydralazine for acute elevation of blood pressure, intravenous Lasix as above. 4. Severe mitral regurgitation. Unclear if this is new. Will clarify with Cardiology. 5. Chronic respiratory failure secondary to restrictive lung disease as a result of severe kyphoscol iosis. Her baseline is 3-4 L of oxygen continuously. 6. Troponin elevation. I suspect strain due to her congestive heart failure. We will trend this. 7. Pulmonary hypertension. This is clearly due to her restrictive lung disease. ADMISSION STATUS: 1. Will admit to inpatient as she is critically ill. Anticipate greater than 2 midnights for stabil ization. 2. DVT prophylaxis. She is high risk. Will place her on subcu Lovenox. 3. Cor status: She requests limited resuscitation, intubation okay, but no CPR or shock. Critical care time spent is 45 minutes. /[id number]/MODL
[2017-10-29] MEDS ORDERED: NITROGLYCERIN 2% 1 GM PACKET TP SCH (12:00)
--- NOTE | 2017-10-29 12:15 | PDMN ---
Medical Necessity Medical necessity: est los>2mn for acute resp failure r/t pulmonary edema, acute diastolic CHF, elevated troponin, severe mitral regurgitation ( ? if new) ; admit to ICU for IV Lasix, BP and volume control, follow troponin, Bi-Pap ; comorbid severe kyphoscoliosis, chronic resp failure r/t restrictive lung disease w/continuous O2 3-4L, CAD, HLD, HTN, pulmonary htn; per order and H&P
--- NOTE | 2017-10-29 14:13 | ASMTCMCOM ---
CM Note CM Note Notes: Patient admitted with acute respiratory failure, secondary to pulmonary edema. She is s/p TAVR 10/17/17. I spoke with patient and her son and DIL. She was discharged to [facility] after the TAVR and and spent less than a week there. She was sent home with [facility] RN/PT. She lives independently at the [facility]. Ideally, she will discharge home with her existing homecare services. [facility] notified. Date Signed: 10/29/2017 02:13 PM Electronically Signed By:Henrietta Sebastian RN
[2017-10-29] MEDS ORDERED: FUROSEMIDE 40 MG/4 ML VIAL IVP SCH (15:00)
[2017-10-29] MEDS: MONTELUKAST SODIUM 10 MG TAB PO SCH (22:06)
[2017-10-30] MEDS: NITROGLYCERIN 2% 1 GM PACKET TP SCH ×2 (00:30→07:23)
[2017-10-30 05:28] LABS: PLATELET COUNT 179 10^3/uL (150-400)
--- NOTE | 2017-10-30 06:59 | PDCARPN ---
Cardiology Progress Note Chief Complaint: SOB Assessment/Plan: Assessment: s/p TAVR admitted with diastolic HF Plan: 10/30/17 06:56 doing much better back to baseline needs to curtail free water/salt intake nutrition consult PT OOB one more dose of IV lasix d/c arroyo switch to lasix 40 mg po/KCL 10 meq po qd on 10/31 if renal function stable Hgb lower today--no obvious sign of bleeding, will re-check in AM Subjective: doing much better Reviewed/Discussed With: multidisciplinary team Time Spent with Patient: greater than 25 minutes Time Spent with Patient: Greater than 25 minutes spent on this patients care, greater than 50% of time spent counseling, educating, and coordinating care regarding the above mentioned plan. Objective: Vital Signs (8 Hrs) Temp Pulse Resp BP Pulse Ox 10/30/17 04:00 36.5 C 86 21 H 106/35 L 100 10/30/17 00:00 86 18 109/38 L 100 Intake/Output (24 Hrs) 10/29/17 10/30/17 10/31/17 05:59 05:59 05:59 Intake Total 500 250 Output Total 2925 150 Balance -2425 100 Intake: Oral (ml) 500 250 IV Intake (ml) 0 Output: Urine (ml) 2925 150 Catheter 2925 150 Other: Weight 60.781 kg Result Diagrams: 10/30/17 05:00 10/30/17 05:00 Cardiac Labs: Cardiac Lab Results (72 Hrs) 10/29/17 10/29/17 18:10 11:53 Troponin I 0.190 H 0.169 H - Physical Exam Constitutional: healthy appearing Eyes: PERRL Ears, Nose, Mouth, Throat: moist mucous membranes Cardiovascular: regular rate and rhythm, systolic murmur Peripheral Pulses: 1+: femoral (R), femoral (L) Respiratory: clear to auscultate bilat Gastrointestinal: normoactive bowel sounds Skin: no rashes Musculoskeletal: no muscular tenderness Neurologic: AAOx3 Psychiatric: cooperative ICD10 Worksheet Patient Problems: Problems Problem Status Onset Pulmonary edema Acute Aortic stenosis Acute
[2017-10-30] MEDS ORDERED: FUROSEMIDE 40 MG/4 ML VIAL IVP ONE (07:01)
[2017-10-30] MEDS: PANTOPRAZOLE SODIUM 40 MG TAB PO SCH (08:04)
[2017-10-30] MEDS: ATORVASTATIN CALCIUM 40 MG TAB PO SCH (08:04)
[2017-10-30] MEDS: ASPIRIN 81 MG CHEWABLE TAB PO SCH (08:04)
[2017-10-30] MEDS: LISINOPRIL 5 MG TAB PO SCH (08:04)
[2017-10-30] MEDS: ENOXAPARIN 40 MG/0.4 ML SYR SC SCH (08:04)
[2017-10-30] MEDS ORDERED: FUROSEMIDE 40 MG/4 ML VIAL IVP SCH (09:00)
[2017-10-30] MEDS ORDERED: NON-FORMULARY NEW DRUG (Omeprazole [Omeprazole] 20 MG) PO SCH (09:00)
[2017-10-30] MEDS ORDERED: LACTULOSE 20 GM/30 ML UDCUP PO PRN (11:11)
[2017-10-30] MEDS ORDERED: MAGNESIUM HYDROXIDE 30 ML UDCUP PO PRN (11:11)
[2017-10-30] MEDS ORDERED: BISACODYL 10 MG SUPP PR PRN (11:11)
[2017-10-30] MEDS ORDERED: POLYETHYLENE GLYCOL 3350 17 GM PKT PO PRN (11:11)
--- NOTE | 2017-10-30 18:32 | HOSPPROG ---
Hospitalist Progress Note Assessment/Plan: * Acute diastolic CHF -improved with IV Lasix * Acute on chronic respiratory failure -back to baseline O2 3-4L * Restrictive lung disease due to severe kyphoscoliosis * s/p recent TAVR -valve okay on recent TAVR * Severe MR * Pulmonary HTN - due to restrictive lung disease * Troponin elevation - strain due to CHF Subjective: No complaints, feels much better Objective: Vital Signs Temp Pulse Resp BP Pulse Ox 37.1 C 84 23 H 124/51 H 100 10/30/17 12:00 10/30/17 12:00 10/30/17 12:00 10/30/17 12:00 10/30/17 12:00 Laboratory Results 10/30/17 05:00 10/30/17 05:00 10/29/17 10/30/17 10/31/17 05:59 05:59 05:59 Intake Total 500 250 Output Total 2925 1050 Balance -2425 -800 PT 12.4 SEC (12.0-15.0) 10/29/17 06:35 INR 0.90 (0.83-1.16) 10/29/17 06:35 - Physical Exam Constitutional: no apparent distress, appears nourished, not in pain Cardiovascular: regular rate and rhythym, no murmur, rub, or gallop Respiratory: no respiratory distress, no rales or rhonchi, clear to auscultation Gastrointestinal: normoactive bowel sounds, soft, non-tender abdomen, no palpable masses Skin: no rashes or abrasions, no fluctuance, no induration Neurologic: AAOx3, sensation intact bilaterally Psychiatric: interacting appropriately, not anxious, not encephalopathic, thought process linear ICD10 Worksheet Patient Problems: Problems Problem Status Onset Pulmonary edema Acute Aortic stenosis Acute
[2017-10-30] MEDS: MONTELUKAST SODIUM 10 MG TAB PO SCH (20:53)
[2017-10-30] MEDS: SENNOSIDES/DOCUSATE SODIUM TAB PO SCH (20:53)
[2017-10-31 05:15] LABS: PLATELET COUNT 161 10^3/uL (150-400)
--- NOTE | 2017-10-31 06:50 | PDCARPN ---
Cardiology Progress Note Chief Complaint: SOB Assessment/Plan: Assessment: s/p TAVR admitted with diastolic HF Plan: 10/30/17 06:56 doing much better back to baseline needs to curtail free water/salt intake nutrition consult PT OOB one more dose of IV lasix d/c arroyo switch to lasix 40 mg po/KCL 10 meq po qd on 10/31 if renal function stable Hgb lower today--no obvious sign of bleeding, will re-check in AM 10/31/17 06:47 doing very well BP/HR stable renal function stable Hgb increased Echo- MR still mod/severe however clinically much improved OK to d/c home today with oral lasix, KCL, Mg Ox Will see next week in office Subjective: doing well Reviewed/Discussed With: multidisciplinary team Time Spent with Patient: greater than 25 minutes Time Spent with Patient: Greater than 25 minutes spent on this patients care, greater than 50% of time spent counseling, educating, and coordinating care regarding the above mentioned plan. Objective: Vital Signs (8 Hrs) Temp Pulse Resp BP Pulse Ox 10/31/17 04:00 69 18 106/30 L 99 10/31/17 00:00 36.8 C 62 15 89/28 L 100 Intake/Output (24 Hrs) 10/30/17 10/31/17 11/01/17 05:59 05:59 05:59 Intake Total 500 1000 Output Total 2925 1150 Balance -2425 -150 Intake: Oral (ml) 500 1000 IV Intake (ml) 0 Output: Urine (ml) 2925 1150 Catheter 2925 1050 Toilet 100 Other: Weight 60.781 kg Number of Voids Catheter 1 Number of Stools Catheter 1 Toilet 1 Result Diagrams: 10/31/17 05:02 10/31/17 05:02 Cardiac Labs: Cardiac Lab Results (72 Hrs) 10/29/17 10/29/17 18:10 11:53 Troponin I 0.190 H 0.169 H - Physical Exam Constitutional: healthy appearing Eyes: PERRL Ears, Nose, Mouth, Throat: moist mucous membranes Cardiovascular: regular rate and rhythm Peripheral Pulses: 1+: femoral (R), femoral (L) Respiratory: clear to auscultate bilat Gastrointestinal: normoactive bowel sounds Genitourinary: no suprapubic tenderness Skin: no rashes Musculoskeletal: no muscular tenderness Neurologic: AAOx3 Psychiatric: cooperative ICD10 Worksheet Patient Problems: Problems Problem Status Onset Pulmonary edema Acute Aortic stenosis Acute
[2017-10-31] MEDS ORDERED: MAGNESIUM OXIDE 400 MG TAB PO SCH (09:00)
[2017-10-31] MEDS ORDERED: POTASSIUM CL 10 MEQ TAB PO SCH (09:00)
[2017-10-31] MEDS ORDERED: FUROSEMIDE 40 MG TAB PO SCH (09:00)
[2017-10-31] MEDS: ASPIRIN 81 MG CHEWABLE TAB PO SCH (09:13)
[2017-10-31] MEDS: ATORVASTATIN CALCIUM 40 MG TAB PO SCH (09:13)
[2017-10-31] MEDS: ENOXAPARIN 40 MG/0.4 ML SYR SC SCH (09:13)
[2017-10-31] MEDS: LISINOPRIL 5 MG TAB PO SCH (09:13)
[2017-10-31] MEDS: PANTOPRAZOLE SODIUM 40 MG TAB PO SCH (09:13)
[2017-10-31] MEDS: SENNOSIDES/DOCUSATE SODIUM TAB PO SCH (09:14)
[2017-10-31 11:26] VITALS: BP 110/43
--- NOTE | 2017-10-31 18:31 | GDS ---
[f rep st] DISCHARGE SUMMARY DISCHARGE DIAGNOSES: 1. Acute diastolic congestive heart failure. 2. Acute on chronic respiratory failure, baseline 3-4 L. 3. Restrictive lung disease due to severe kyphoscoliosis. 4. Aortic stenosis, status post recent transcatheter aortic valve replacement. 5. Severe mitral regurgitation. 6. Pulmonary hypertension due to restrictive lung disease. 7. Troponin elevation, strain due to congestive heart failure. HISTORY OF PRESENT ILLNESS: The patient is an 82-year-old female who recently had a TAVR. She prese nted with florid CHF with severe respiratory failure requiring BiPAP. She was admitted to the ICU. She responded quickly to IV diuresis and is back to her baseline 3 L. Echocardiogram showed the valv e was in good condition. She was seen here in consultation with Dr. Santos. She will discharge on Lasix and standard CHF discharge instructions, including sodium fluid restrictions and daily weights. DISCHARGE MEDICATIONS: Please see computer record for full detailed list. New medications: 1. Lasix 40 mg p.o. daily. 2. Magnesium oxide 200 mg p.o. daily. 3. Potassium 10 mEq p.o. daily. ADDITIONAL DISCHARGE INSTRUCTIONS: 1. Daily weights. Call Cardiology if her weight increases by 2 pounds. 2. Sodium restriction 1 to 2 g per day. 3. Fluid restriction 1500 cc per day. Greater than 30 minutes of time was spent arranging this discharge. Patient seen and examined by me on the day of discharge. /[id number]/MODL
== END 2017-10-31 13:19 | DRG 291 ==
LOC: EDUNIT# → F2N 08:19
PROVIDERS: ADMIT Family Medicine; ATTEND Internal Medicine
PROC: 5A09357 Assistance with Respiratory Ventilation, Less than 24 Consecutive Hours, Continuous Positive Airway Pressure (ICD-10-PCS; principal; 2017-10-29)
DX: I50.31 Acute diastolic (congestive) heart failure (principal); J96.21 Acute and chronic respiratory failure with hypoxia; Z95.3 Presence of xenogenic heart valve; I34.0 Nonrheumatic mitral (valve) insufficiency; M41.84 Other forms of scoliosis, thoracic region; J98.4 Other disorders of lung; I27.23 Pulmonary hypertension due to lung diseases and hypoxia; I10 Essential (primary) hypertension; I25.10 Atherosclerotic heart disease of native coronary artery without angina pectoris; I25.2 Old myocardial infarction; K21.9 Gastro-esophageal reflux disease without esophagitis; E78.5 Hyperlipidemia, unspecified; G62.9 Polyneuropathy, unspecified
CPT/HCPCS: 97161-GP; 97165-GO; G8978-GP-CI; G8979-GP-CI; G8980-GP-CI; G8987-GO-CI; G8988-GO-CI; J1650; J1940; Q9967

== ENCOUNTER → 2017-11-14 | Outpatient (CLI) | payer OTHER, MEDICARE | LOC: BHFA 10:45 | PROVIDERS: ATTEND Internal Medicine | DX: I77.9 Disorder of arteries and arterioles, unspecified (principal) ==

== ENCOUNTER → 2018-04-12 | Outpatient (CLI) | payer OTHER, MEDICARE | LOC: BMCIMAGING 08:41 | PROVIDERS: ATTEND Internal Medicine | DX: Z12.31 Encounter for screening mammogram for malignant neoplasm of breast (principal) ==

== ENCOUNTER 2018-05-27 10:13 | Inpatient (IN) | payer OTHER, MEDICARE ==
--- NOTE | 2018-05-27 10:28 | EDPHY ---
H & P Time Seen by Provider: 05/27/18 10:20 HPI/ROS: CHIEF COMPLAINT: Lightheadedness and nausea HISTORY OF PRESENT ILLNESS: The patient is an 83-year-old female with a history of CHF and TAVR in October of this year. She states that she went to bed feeling fine but woke up around 6:00 a.m. Very lightheaded. Her lightheadedness worse when she sat up. She called for help from the [place] nursing staff. They noticed that her oxygen tubing had been kinked all night. She was hypoxic. She is supposed to be on 3 L of oxygen at baseline. They put her back on the oxygen but she continued to feel lightheaded. Paramedics were called and when they arrived they increased her oxygen to 6% and the patient's lightheadedness resolved. She did not have any chest pain. She denies recent coughs infections or fevers. Here she is saturating 90-92% on her baseline 3 L. She has not she states that she has not had any increased edema. Severity: Moderate Modifying factors: Improved with oxygen REVIEW OF SYSTEMS: Constitutional: denies: chills, fever, recent illness, recent injury EENTM: denies: blurred vision, double vision, nose congestion Respiratory: denies: cough, shortness of breath Cardiac: denies: chest pain, irregular heart rate, lightheadedness, palpitations Gastrointestinal/Abdominal: denies: abdominal pain, diarrhea, nausea, vomiting, blood streaked stools Genitourinary: denies: dysuria, frequency, hematuria, pain Musculoskeletal: denies: joint pain, muscle pain Skin: denies: lesions, rash, jaundice, bruising Neurological: denies: headache, numbness, paresthesia, tingling, dizziness, weakness Hematologic/Lymphatic: denies: blood clots, easy bleeding, easy bruising Immunologic/allergic: denies: HIV/AIDS, transplant 10 systems reviewed and negative except as noted EXAM: GENERAL: Well-appearing, well-nourished and in no acute distress. HEAD: Atraumatic, normocephalic. EYES: Pupils equal round and reactive to light, extraocular movements intact, sclera anicteric, conjunctiva are normal. ENT: TMs normal, nares patent, oropharynx clear without exudates. Moist mucous membranes. NECK: Normal range of motion, supple without lymphadenopathy or JVD. LUNGS: Bilateral crackling HEART: Regular rate and rhythm without murmurs, rubs or gallops. ABDOMEN: Soft, nontender, normoactive bowel sounds. No guarding, no rebound. No masses appreciated. BACK: No CVA tenderness, no spinal tenderness, step-offs or deformities EXTREMITIES: Normal range of motion, no pitting or edema. No clubbing or cyanosis. NEUROLOGICAL: Cranial nerves II through XII grossly intact. Normal speech, normal gait. 5/5 strength, normal movement in all extremities, normal sensation , normal reflexes PSYCH: Normal mood, normal affect. SKIN: Warm, dry, normal turgor, no visible rashes or lesions. Source: Patient, EMS, detention records Exam Limitations: No limitations - Medical/Surgical History Hx Asthma: No Hx Chronic Respiratory Disease: Yes Hx Diabetes: No Hx Cardiac Disease: Yes Hx Renal Disease: No Hx Cirrhosis: No Hx Alcoholism: No Hx HIV/AIDS: No Hx Splenectomy or Spleen Trauma: No Other PMH: PMH: AMI, HTN, high cholesterol, GERD, COPD, TAVR, kyphoscoliosis - Social History Smoking Status: Former smoker Alcohol Use: Sober Drug Use: None Constitutional: Initial Vital Signs Temperature (C) 36.5 C 05/27/18 10:33 Heart Rate 95 05/27/18 10:33 Respiratory Rate 18 05/27/18 10:33 Blood Pressure 131/51 H 05/27/18 10:33 O2 Sat (%) 91 L 05/27/18 10:33 O2 Delivery Mode Nasal Cannula O2 (L/minute) 3 Allergies/Adverse Reactions: bacitracin [From Neosporin] Allergy (Unknown, Verified 10/29/17 06:52) bacitracin zinc [From Neosporin] Allergy (Unknown, Verified 10/29/17 06:52) gramicidin D [From Neosporin] Allergy (Unknown, Verified 10/29/17 06:52) neomycin sulfate [From Neosporin] Allergy (Unknown, Verified 10/29/17 06:52) polymyxin B [From Neosporin] Allergy (Unknown, Verified 10/29/17 06:52) polymyxin B sulfate [From Neosporin] Allergy (Unknown, Verified 10/29/17 06:52) Sulfa (Sulfonamide Antibiotics) Allergy (Unknown, Verified 10/29/17 06:52) Home Medications: Medication Instructions Recorded Aspirin [Aspirin 81mg (*)] 81 mg PO DAILY 09/27/17 Atorvastatin Calcium [Lipitor 40 40 mg PO HS 09/27/17 mg (*)] Montelukast Sodium [Singulair 10 10 mg PO HS 09/27/17 mg (*)] Multivitamins [Multivitamin (*)] 1 each PO DAILY 09/27/17 Sherman-3 Fatty Acids [Fish Oil 1000 2,000 mg PO DAILY 09/27/17 mg (*)] Omeprazole 20 mg PO DAILY 09/27/17 Lisinopril [Zestril 5 mg (*)] 5 mg PO DAILY 10/29/17 Docusate Sodium [Colace 100 MG (*)] 200 mg PO HS 05/27/18 Furosemide [Lasix 40 MG (*)] 60 mg PO DAILY 05/27/18 Spironolactone [Aldactone 25 MG 25 mg PO DAILY 05/27/18 (*)] Medical Decision Making - Diagnostics Imaging: Discussed imaging studies w/ call center recruiter Radiologist ED Course/Re-evaluation: The spoke with hospital service. They will admit. I suspect the patient may have had some cardiac stress with being off of her oxygen all night. She has a slight bump in her troponin compared to baseline and slight hyponatremia. Also she has mild crackles and possibly increased oxygen requirement. Differential Diagnosis: Partial list of the Differential diagnosis considered include but were not limited to; hypoxia, acute coronary disease, and although unlikely based on the history and physical exam, I also considered CHF, pneumonia. I discussed these differential diagnoses and the plan with the patient as well as the usual and expected course. The patient understands that the diagnosis is provisional and that in medicine we are not always correct and that further workup is often warranted. Usual and customary warnings were given. All of the patient's questions were answered. The patient was instructed to return to the emergency department should the symptoms at all worsen or return, otherwise to followup with the physician as we discussed. - Data Points Laboratory Results: Laboratory Results 05/27/18 10:20 05/27/18 10:20 Medications Given: Aspirin (Aspirin) 81 mg PO DAILY [facility] Stop: 11/23/18 17:21 Last Admin: 05/28/18 09:59 Dose: 81 mg Atorvastatin Calcium (Lipitor) 40 mg PO HS [facility] Stop: 11/23/18 20:59 Last Admin: 05/27/18 20:14 Dose: 40 mg Docusate Sodium (Colace) 200 mg PO HS [facility] Stop: 11/23/18 20:59 Last Admin: 05/27/18 20:13 Dose: 100 mg Lisinopril (Zestril) 5 mg PO DAILY [facility] Stop: 11/23/18 17:29 Last Admin: 05/28/18 10:05 Dose: 5 mg Montelukast Sodium (Singulair) 10 mg PO HS [facility] Stop: 11/23/18 20:59 Last Admin: 05/27/18 20:14 Dose: 10 mg Pantoprazole Sodium (Protonix) 40 mg PO DAILY [facility] Stop: 11/23/18 17:23 Last Admin: 05/28/18 10:00 Dose: 40 mg Spironolactone (Aldactone) 25 mg PO DAILY [facility] Stop: 11/23/18 17:29 Last Admin: 05/28/18 10:00 Dose: 25 mg Discontinued Medications Furosemide (Lasix) 60 mg PO DAILY [facility] Stop: 11/23/18 17:29 Last Admin: 05/28/18 10:00 Dose: 20 mg Point of Care Test Results: Chemistry 05/27/18 10:33 POC Troponin I 0.37 ng/mL H ng/mL (0.00-0.08) Departure - Departure Disposition: [facility] Inpatient Acute Clinical Impression: Pre-syncope, Hypoxia Condition: Good
--- NOTE | 2018-05-27 10:37 | CPEKG ---
Test Reason : OPEN Blood Pressure : / mmHG Vent. Rate : 092 BPM Atrial Rate : 093 BPM P-R Int : 214 ms QRS Dur : 134 ms QT Int : 414 ms P-R-T Axes : 026 -13 121 degrees QTc Int : 513 ms Sinus rhythm Borderline prolonged MA interval Left bundle branch block Confirmed by Sumeet Sarmiento ([id number]) on 05/27/2018 10:37:29 AM Referred By: Confirmed By:Sumeet Sarmiento
[2018-05-27 10:43] LABS: PLATELET COUNT 311 10^3/uL (150-400)
[2018-05-27 10:49] LABS: INR 0.92 (0.83-1.16); PROTIME(PATIENT) 12.6 SEC (12.0-15.0)
[2018-05-27] MEDS ORDERED: ACETAMINOPHEN 325 MG TAB PO PRN (12:49)
[2018-05-27] MEDS ORDERED: ONDANSETRON DISINTEGRATING 4 MG TAB PO PRN (12:49)
[2018-05-27] MEDS ORDERED: ONDANSETRON 4 MG/2 ML VIAL IVP PRN (12:49)
--- NOTE | 2018-05-27 15:32 | PDGENHP ---
<Nicole Srivastava - Last Filed: 05/27/18 16:34> History and Physical - Chief Complaint Lightheadedness, nausea - History of Present Illness 83 y/o female with history of CHF and TAVR presents to the ED after experiencing lightheadedness and nausea while residing at the [facility]. This is my first encounter with the pt. She was evaluated in her room with her son, Jonathan, at her bedside. She is semi-ribera's position and in no apparent distress. She reports she felt "fine" yesterday before going to bed. However, she woke up early this morning and felt nauseous and like she needed to vomit. She stood up and felt "the worst vertigo of my life," before sitting back down and eating a LifeSaver thinking she was hypoglycemic. It assisted her nausea but she continued to feel lightheaded. She used her LifeAlert and she was told she looked pale. It was also mentioned to her that her baseline 3L oxygen NC canister was bumped down to 2L NC and there was a "kink" in her oxygen tubing. She also states her blood pressure was "bouncing around." After being admitted, she no longer feels lightheaded or nauseous. She denies chest pains, fevers, chills, diarrhea, dysuria. EKG: LBBB CXR: Mild fluid overload/CHF She is being admitted for further observation. Vital Signs 104/54 HR: 91 Respirations: 16 Temp: 36.5c O2: 92% 3LNC History Information - Allergies/Home Medication List Allergies/Adverse Reactions: bacitracin [From Neosporin] Allergy (Unknown, Verified 10/29/17 06:52) bacitracin zinc [From Neosporin] Allergy (Unknown, Verified 10/29/17 06:52) gramicidin D [From Neosporin] Allergy (Unknown, Verified 10/29/17 06:52) neomycin sulfate [From Neosporin] Allergy (Unknown, Verified 10/29/17 06:52) polymyxin B [From Neosporin] Allergy (Unknown, Verified 10/29/17 06:52) polymyxin B sulfate [From Neosporin] Allergy (Unknown, Verified 10/29/17 06:52) Sulfa (Sulfonamide Antibiotics) Allergy (Unknown, Verified 10/29/17 06:52) Home Medications: Aspirin [Aspirin 81mg (*)] 81 mg PO DAILY 09/27/17 [Last Taken 05/26/18] Atorvastatin Calcium [Lipitor 40 mg (*)] 40 mg PO HS 09/27/17 [Last Taken ] Montelukast Sodium [Singulair 10 mg (*)] 10 mg PO HS 09/27/17 [Last Taken ] Multivitamins [Multivitamin (*)] 1 each PO DAILY 09/27/17 [Last Taken 05/26/18] [place]-3 Fatty Acids [Fish Oil 1000 mg (*)] 2,000 mg PO DAILY 09/27/17 [Last Taken 05/26/18] Omeprazole 20 mg PO DAILY 09/27/17 [Last Taken 05/26/18] Lisinopril [Zestril 5 mg (*)] 5 mg PO DAILY 10/29/17 [Last Taken 05/26/18] Docusate Sodium [Colace 100 MG (*)] 200 mg PO HS 05/27/18 [Last Taken 05/26/18] Furosemide [Lasix 40 MG (*)] 60 mg PO DAILY 05/27/18 [Last Taken 05/26/18] Spironolactone [Aldactone 25 MG (*)] 25 mg PO DAILY 05/27/18 [Last Taken ] I have personally reviewed and updated: family history, medical history, social history, surgical history Past Medical History: Hypertension, HLD, CAD, COPD, kyphoscoliosis, venous statis ulcers, perpherial neuropathy, TAVR (October 2017) - Family History Positive for: non-pertinent - Social History Smoking Status: Former smoker Alcohol Use: Sober Drug Use: None Additional social history: Lives at the [facility] Review of Systems Review of Systems: ROS: 10pt was reviewed & negative except for what was stated in HPI & below Constitutional: Reports: no symptoms EENMT: Reports: no symptoms Cardiac: Reports: lightheadedness Respiratory: Reports: no symptoms Gastrointestinal: Reports: nausea Genitourinary: Reports: no symptoms Muscolosketal: Reports: no symptoms Skin: Reports: no symptoms Neurological: Reports: no symptoms Hematologic/Lymphatic: Reports: no symptoms Immunologic/Allergy: Reports: other (See allergy list) Physical Exam Physical Exam: Lab data and imaging reviewed CXR: Mild fluid overload. Possible pulmonary edema versus interstitial lung disease EKG: LBBB, no significant changes from previous EKGs WBC: 10.73 RBC: 3.91 Hgb/Hct: 12.0/37.3 INR: 0.92 K: 5.5 BUN/Creatinine: 53/1.1 Trop: 0.37 Na: 135 Temp Pulse Resp BP Pulse Ox 36.4 C 85 20 109/47 L 97 05/27/18 14:37 05/27/18 14:37 05/27/18 14:37 05/27/18 14:37 05/27/18 14:37 O2 (L/minute) 3 Constitutional: no apparent distress, appears nourished, not in pain Eyes: PERRL, anicteric sclera, EOMI Ears, Nose, Mouth, Throat: moist mucous membranes, hearing normal, ears appear normal, no oral mucosal ulcers Cardiovascular: regular rate and rhythym, no murmur, rub, or gallop, No edema Peripheral Pulses: 2+: dorsalis-pedis (R) (Radial 2+; mild pedal edema), dorsalis-pedis (L) (Radial 2+; mild pedal edema) Respiratory: reduced air movement Gastrointestinal: normoactive bowel sounds, soft, non-tender abdomen, no palpable masses Genitourinary: no bladder fullness, no bladder tenderness Skin: warm, normal color, no rashes or abrasions, no fluctuance, no induration, No mottled Musculoskeletal: full muscle strength, no muscle tenderness, normal joint ROM, no joint effusions Neurologic: AAOx3, sensation intact bilaterally, CN II-XII Intact Psychiatric: interacting appropriately, not anxious, not encephalopathic, thought process linear Lymph, Heme, Immunologic: no cervical LAD, no supraclavicular LAD Lab Data & Imaging Review 05/27/18 10:20 05/27/18 10:20 WBC 10.73 10^3/uL (3.80-9.50) H 05/27/18 10:20 RBC 3.91 10^6/uL (4.18-5.33) L 05/27/18 10:20 Hgb 12.0 g/dL (12.6-16.3) L 05/27/18 10:20 Hct 37.3 % (38.0-47.0) L 05/27/18 10:20 MCV 95.4 fL (81.5-99.8) 05/27/18 10:20 MCH 30.7 pg (27.9-34.1) 05/27/18 10:20 MCHC 32.2 g/dL (32.4-36.7) L 05/27/18 10:20 RDW 13.2 % (11.5-15.2) 05/27/18 10:20 Plt Count 311 10^3/uL (150-400) 05/27/18 10:20 MPV 11.0 fL (8.7-11.7) 05/27/18 10:20 Neut % (Auto) 74.4 % (39.3-74.2) H 05/27/18 10:20 Lymph % (Auto) 14.6 % (15.0-45.0) L 05/27/18 10:20 Humphreys % (Auto) 9.8 % (4.5-13.0) 05/27/18 10:20 Eos % (Auto) 0.5 % (0.6-7.6) L 05/27/18 10:20 Baso % (Auto) 0.3 % (0.3-1.7) 05/27/18 10:20 Nucleat RBC Rel Count 0.0 % (0.0-0.2) 05/27/18 10:20 Absolute Neuts (auto) 7.99 10^3/uL (1.70-6.50) H 05/27/18 10:20 Absolute Lymphs (auto) 1.57 10^3/uL (1.00-3.00) 05/27/18 10:20 Absolute Monos (auto) 1.05 10^3/uL (0.30-0.80) H 05/27/18 10:20 Absolute Eos (auto) 0.05 10^3/uL (0.03-0.40) 05/27/18 10:20 Absolute Basos (auto) 0.03 10^3/uL (0.02-0.10) 05/27/18 10:20 Absolute Nucleated RBC 0.00 10^3/uL (0-0.01) 05/27/18 10:20 Immature Gran % 0.4 % (0.0-1.1) 05/27/18 10:20 Immature Gran # 0.04 10^3/uL (0.00-0.10) 05/27/18 10:20 PT 12.6 SEC (12.0-15.0) 05/27/18 10:20 INR 0.92 (0.83-1.16) 05/27/18 10:20 APTT 29.8 SEC (23.0-38.0) 05/27/18 10:20 Sodium 135 mEq/L (135-145) 05/27/18 10:20 Potassium 5.5 mEq/L (3.5-5.2) H 05/27/18 10:20 Chloride 99 mEq/L (97-110) 05/27/18 10:20 Carbon Dioxide 26 mEq/l (22-31) 05/27/18 10:20 Anion Gap 10 mEq/L (6-14) 05/27/18 10:20 BUN 53 mg/dL (7-23) H 05/27/18 10:20 Creatinine 1.1 mg/dL (0.6-1.0) H 05/27/18 10:20 Estimated GFR 48 05/27/18 10:20 Glucose 111 mg/dL (70-100) H 05/27/18 10:20 Calcium 9.7 mg/dL (8.5-10.4) 05/27/18 10:20 POC Troponin I 0.37 ng/mL (0.00-0.08) H 05/27/18 10:33 NT-Pro-B Natriuret Pep 409 pg/mL (0-450) 05/27/18 10:20 Assessment & Plan Plan: 83 y/o female with history of CAD and TAVR presents with hypoxemic event with symptoms of lightheadedness and nausea. Since arriving at the hospital, her symptoms have resolved. 1. Acute hypoxemic respiratory failure: undetermined whether her symptoms were related to equipment failure or if something more significant is taking place. CXR suggests possible pulmonary edema or beginnings of interstitial lung disease. Continue to monitor pulse ox. She does have mild pedal edema and diminished breath sounds. Will plan to diuresis her. Continue her baseline 3L O2. Will cycle trops at this time as well. She is mildly leukocytosis which I believe is inflammatory and not infectious. She may continue use of Singulair. 2. CAD/TAVR/CHF: will perform complete ECHO to evaluate current heart function. May continue atorvastatin, ASA, lasix, aldactone. 3. Hypertension: continue to monitor and may continue lisinopril. Diet: Cardiac Code: Full VTE ppx: SCDs Dispo: Admit to obs <Charlie Rosado - Last Filed: 05/27/18 18:17> History and Physical - History of Present Illness Review of Systems Review of Systems: Physical Exam Physical Exam: Temp Pulse Resp BP Pulse Ox 36.4 C 97 20 125/51 H 90 L 05/27/18 17:06 05/27/18 17:06 05/27/18 17:06 05/27/18 17:06 05/27/18 17:06 O2 (L/minute) 3 Lab Data & Imaging Review 05/27/18 10:20 05/27/18 10:20 WBC 10.73 10^3/uL (3.80-9.50) H 05/27/18 10:20 RBC 3.91 10^6/uL (4.18-5.33) L 05/27/18 10:20 Hgb 12.0 g/dL (12.6-16.3) L 05/27/18 10:20 Hct 37.3 % (38.0-47.0) L 05/27/18 10:20 MCV 95.4 fL (81.5-99.8) 05/27/18 10:20 MCH 30.7 pg (27.9-34.1) 05/27/18 10:20 MCHC 32.2 g/dL (32.4-36.7) L 05/27/18 10:20 RDW 13.2 % (11.5-15.2) 05/27/18 10:20 Plt Count 311 10^3/uL (150-400) 05/27/18 10:20 MPV 11.0 fL (8.7-11.7) 05/27/18 10:20 Neut % (Auto) 74.4 % (39.3-74.2) H 05/27/18 10:20 Lymph % (Auto) 14.6 % (15.0-45.0) L 05/27/18 10:20 Humphreys % (Auto) 9.8 % (4.5-13.0) 05/27/18 10:20 Eos % (Auto) 0.5 % (0.6-7.6) L 05/27/18 10:20 Baso % (Auto) 0.3 % (0.3-1.7) 05/27/18 10:20 Nucleat RBC Rel Count 0.0 % (0.0-0.2) 05/27/18 10:20 Absolute Neuts (auto) 7.99 10^3/uL (1.70-6.50) H 05/27/18 10:20 Absolute Lymphs (auto) 1.57 10^3/uL (1.00-3.00) 05/27/18 10:20 Absolute Monos (auto) 1.05 10^3/uL (0.30-0.80) H 05/27/18 10:20 Absolute Eos (auto) 0.05 10^3/uL (0.03-0.40) 05/27/18 10:20 Absolute Basos (auto) 0.03 10^3/uL (0.02-0.10) 05/27/18 10:20 Absolute Nucleated RBC 0.00 10^3/uL (0-0.01) 05/27/18 10:20 Immature Gran % 0.4 % (0.0-1.1) 05/27/18 10:20 Immature Gran # 0.04 10^3/uL (0.00-0.10) 05/27/18 10:20 PT 12.6 SEC (12.0-15.0) 05/27/18 10:20 INR 0.92 (0.83-1.16) 05/27/18 10:20 APTT 29.8 SEC (23.0-38.0) 05/27/18 10:20 Sodium 135 mEq/L (135-145) 05/27/18 10:20 Potassium 5.5 mEq/L (3.5-5.2) H 05/27/18 10:20 Chloride 99 mEq/L (97-110) 05/27/18 10:20 Carbon Dioxide 26 mEq/l (22-31) 05/27/18 10:20 Anion Gap 10 mEq/L (6-14) 05/27/18 10:20 BUN 53 mg/dL (7-23) H 05/27/18 10:20 Creatinine 1.1 mg/dL (0.6-1.0) H 05/27/18 10:20 Estimated GFR 48 05/27/18 10:20 Glucose 111 mg/dL (70-100) H 05/27/18 10:20 Calcium 9.7 mg/dL (8.5-10.4) 05/27/18 10:20 POC Troponin I 0.37 ng/mL (0.00-0.08) H 05/27/18 10:33 Troponin I 0.994 ng/mL (0.000-0.034) H 05/27/18 15:15 NT-Pro-B Natriuret Pep 409 pg/mL (0-450) 05/27/18 10:20 Assessment & Plan Assessment: Pre-syncope (Acute)
--- NOTE | 2018-05-27 16:12 | ECHO ---
[email or web address] [address] Main: [phone] Fax: Transthoracic Echocardiogram Name: SELMA HINES MR#: [id number] Study Date: 05/27/2018 Study Time: 01:16 PM Date of : 1935 Age: 83 year(s) Height: 154.9 cm (61 in.) Weight: 57.61 kg (127 lb.) BSA: 1.56 m2 Gender: Female Examination: Echo Indication: Lightheadedness/hypoxemic, post TAVR 5-18 Image Quality: Technically Difficult Contrast: Requested by: Nicole Srivastava BP: 107 mmHg/53 mmHg Heart Rate: Rhythm: Indication: Lightheadedness/hypoxemic, post TAVR 5-18 Procedure Staff Air Brake Worker: Rose Pyle RDCS Reading Physician: Jamey Santos MD Requesting Provider: Conclusions: Mild concentric LV hypertrophy. Normal global systolic LV function. The ejection fraction is visually estimated to be 60 %. Moderate mitral valve stenosis is present. Mild to moderate mitral regurgitation. Trivial aortic valve regurgitation. Core valve in place.. Mild to moderate tricuspid valve regurgitation. RVSP is 48mmHG.. Measurements: Chambers Valvular Assessment AV/MV Valvular Assessment TV/PV Normal Normal Normal Name Value Range Name Value Range Name Value Range LVDd (2D): 4.8 cm (3.9 cm-5.3 AV Vmax: 1.46 m/s (1 m/s-1.7 TR Vmax: 3.28 mm/s ( - ) cm) m/s) TR PGmax: 43 mmHg ( - ) Visual EF: 60 % AV maxP mmHg ( - ) syst. PAP: 48 mmHg ( - ) AV meanP mmHg ( - ) MV E Vmax: 1.35 m/s ( - ) MV A Vmax: 2.00 m/s ( - ) MV E/A: 0.68 ( - ) MV maxP mmHg ( - ) MV meanP mmHg ( - ) Continued Measurements: Chambers Valvular Assessment AV/MV Valvular Assessment TV/PV Name Value Name Value Name Value LADs Lon.8 cm MV E/E' Septal: 29.50 CVP (est.): 5 mmHg Patient: SELMA HINES Study Date: 05/27/2018 Page 1 of 2 01:16 PM LA Area: 29.6 cm2 MV E/E' Lateral: 30.80 LA Volume: 104 ml MV VTI: 43.90 cm LA Volume Index: 66.7 ml/m2 Findings: Left Ventricle: Normal size left ventricle. Mild concentric LV hypertrophy. Normal global systolic LV function. The ejection fraction is visually estimated to be 60 %. No regional wall motion abnormality. Diastolic dysfunction is present. . LV mid inferoseptal and apical septal wall appears hypokinetic. All remaining segments have normal motion.. Right Ventricle: Normal size right ventricle. Left Atrium: The left atrium is moderately dilated. Right Atrium: The right atrium is normal in size. Mitral Valve: Moderate mitral valve stenosis is present. Mild to moderate mitral regurgitation. MV mean PG is 8mmHG.. Aortic Valve: Trivial aortic valve regurgitation. Core valve in place.. Tricuspid Valve: The tricuspid valve is normal in appearance and function. Mild to moderate tricuspid valve regurgitation. The pulmonary artery pressure is mildly increased. RVSP is 48mmHG.. Pulmonic Valve: The pulmonic valve is normal in appearance and function. Aorta: The aorta is normal. Pericardium: No pericardial effusion. (No Signature Object) Patient: SELMA HINES Study Date: 05/27/2018 Page 2 of 2 01:16 PM [id number]
[2018-05-27] MEDS: LISINOPRIL 5 MG TAB PO SCH (17:59)
[2018-05-27] MEDS: FUROSEMIDE 40 MG TAB PO SCH (17:59)
[2018-05-27] MEDS: SPIRONOLACTONE 25 MG TAB PO SCH (17:59)
--- NOTE | 2018-05-27 18:22 | PDGENHP ---
History and Physical History and Physical: I saw this patient today with Stacie Srivastava physician assistant field hockey coach. The patient has underlying coronary disease, valvular heart disease with moderate mitral regurgitation and stenosis, status post TAVR, and has severe kyphoscoliosis causing him marked good restrictive lung disease, chronic hypoxemic respiratory failure on oxygen at home. . She comes in today having awakened rapidly from sleep feeling quite ill dyspneic lightheaded and nauseous. She was found to be hypoxemic. There was concern at her assisted living apartment that her oxygen tubing it had been kinked and her oxygen flow set at 2 L instead of her usual 3. However even on 3 L of oxygen once this was remedied she still had ongoing symptoms and required 6 L of oxygen from paramedics when they arrived. Here with oxygen on she feels notably better. However she has evidence of some mild pulmonary edema on chest x-ray, and has a troponin initially 0.3 now up at 0.9. She is asymptomatic here with a fairly unremarkable exam, no peripheral edema in no distress, no acute EKG changes. Is unclear whether this episode was caused by hypoxemia from her oxygen setup, acute coronary syndrome, arrhythmia, or other cause of acute heart failure. She does not appear to have any kind of infectious illness and there is nothing to suggest PE. DIAGNOSES: * Acute hypoxemic respiratory failure * NSTEMI * Mild evidence of pulmonary edema * Known valvular heart disease * Known coronary disease * Known severe kyphoscoliosis and restrictive lung disease PLANS: * Admission to PCU * Diuresis * Continue to trend troponin * Echocardiogram * Cardiac monitoring for arrhythmia * Repeat chest x-ray after diuresis * DVT prophylaxis * Will need to decide how to further assess her troponin elevation either with Lexiscan stress or angiography or otherwise in concert with cardiology consultation
[2018-05-27] MEDS: DOCUSATE SODIUM 100 MG CAP PO SCH (20:13)
[2018-05-27] MEDS: ATORVASTATIN CALCIUM 40 MG TAB PO SCH (20:14)
[2018-05-27] MEDS: MONTELUKAST SODIUM 10 MG TAB PO SCH (20:14)
[2018-05-28 02:49] LABS: PLATELET COUNT 257 10^3/uL (150-400)
--- NOTE | 2018-05-28 06:15 | CPEKG ---
Test Reason : OPEN Blood Pressure : / mmHG Vent. Rate : 083 BPM Atrial Rate : 083 BPM P-R Int : 231 ms QRS Dur : 133 ms QT Int : 425 ms P-R-T Axes : 037 -06 082 degrees QTc Int : 500 ms Sinus rhythm Prolonged PA interval Left bundle branch block Confirmed by Guero Bhakta ([id number]) on 05/28/2018 6:14:46 AM Referred By: Confirmed By:Guero Bhakta
--- NOTE | 2018-05-28 08:43 | HOSPPROG ---
Hospitalist Progress Note Assessment/Plan: DIAGNOSES: * Acute on chronic hypoxemic respiratory failure * NSTEMI; Known coronary disease, HTN, HLD * Suspect Mild Acute Diastolic CHF * Acute Kidney Injury, improved overnight with tx of CHF * Known valvular heart disease Moderate MR and MS; s/p TAVR * Known severe kyphoscoliosis and restrictive lung disease * Hx of Upper GI bleedig * peripheral neuropathy Overall stable overnight with no recurrence of symptoms. Troponins slightly higher this morning Did have some small modest diuresis overnight and kidneys have tolerated that well PLANS: * Continue gentle diuresis * Follow on equipment monitor phototypesetting for any arrhythmia * Cardiology consult for further assessment of non STEMI - Lexiscan verses angiograms * Follow renal function closely * Repeat chest x-ray today Seen by me on hospitalist rounds as well as mulitdisc rounds today I reviewed in detail with Megan Polo of Cardiology SUBJECTIVE: Feels notably better this morning, slightly tired and weak No angina or palpitations OBJECTIVE Vitals reviewed: Borderline fast sinus rhythm in the 90s, otherwise stable vital signs without fever, doing well on her usual 3 L oxygen [employer]anut [employer], my review: Sinus rhythm with infrequent PVCs Exam: alert oriented skin warm dry color ok resps not labored lungs clear BSs heart regular abd soft nondistended nontender, bowel sounds present limbs warm, no edema iv site ok Lab data: Troponin up slightly at 1.0 BUN and creatinine slightly better at 49 and 1.0 Electrolytes good Slight drop in hemoglobin otherwise stable CBC Echocardiogram shows preserved LV systolic function, TAVR in good position, no change in her mood known moderate mitral stenosis and regurgitation, mild pulmonary hypertension Objective: Vital Signs Temp Pulse Resp BP Pulse Ox 37.4 C 93 17 94/43 L 96 05/28/18 07:34 05/28/18 07:34 05/28/18 07:34 05/28/18 07:34 05/28/18 07:34 Laboratory Results 05/28/18 02:00 05/28/18 02:00 05/27/18 05/28/18 05/29/18 06:59 06:59 06:59 Intake Total 1020 Output Total 1500 Balance -480 PT 12.6 SEC (12.0-15.0) 05/27/18 10:20 INR 0.92 (0.83-1.16) 05/27/18 10:20 - Time Spent With Patient Time Spent with Patient: greater than 35 minutes Time Spent with Patient: Greater than 35 minutes spent on this patients care, greater than 50% of time spent counseling, educating, and coordinating care regarding the above mentioned plan. ICD10 Worksheet Patient Problems: Problems Problem Status Onset Pre-syncope Acute Aortic stenosis Acute Pulmonary edema Acute chronic disease mgmt/transitional care Acute
[2018-05-28] MEDS ORDERED: PANTOPRAZOLE SODIUM 40 MG TAB PO SCH (09:00)
[2018-05-28] MEDS ORDERED: FUROSEMIDE 40 MG TAB PO SCH (09:00)
[2018-05-28] MEDS ORDERED: ASPIRIN 81 MG CHEWABLE TAB PO SCH (09:00)
[2018-05-28] MEDS ORDERED: SPIRONOLACTONE 25 MG TAB PO SCH (09:00)
[2018-05-28] MEDS ORDERED: LISINOPRIL 5 MG TAB PO SCH (09:00)
[2018-05-28] MEDS: ASPIRIN 81 MG CHEWABLE TAB PO SCH (09:59)
[2018-05-28] MEDS: SPIRONOLACTONE 25 MG TAB PO SCH (10:00)
[2018-05-28] MEDS: FUROSEMIDE 40 MG TAB PO SCH (10:00)
[2018-05-28] MEDS: PANTOPRAZOLE SODIUM 40 MG TAB PO SCH (10:00)
[2018-05-28] MEDS: LISINOPRIL 5 MG TAB PO SCH (10:05)
--- NOTE | 2018-05-28 13:02 | GCON ---
CARDIOLOGY CONSULTATION DATE OF CONSULTATION: 05/28/2018 REFERRING PHYSICIAN: Charlie Rosado MD REASON FOR CONSULTATION: We were asked by Dr. Charlie Rosado to evaluate the patient for her elevated troponin. PRIMARY CARE PHYSICIAN: Dr. Manoj Villafuerte. PRIMARY TILE GRADER: Dr. Guero Bhakta. HISTORY OF PRESENT ILLNESS: The patient is an 83-year-old female with a past medical history of , status post TAVR in October of 2017, mild coronary artery disease, cnln-sv-[id number] peripheral vascular disease, hypertension, severe kyphosis, chronic left bundle branch block, chronic diastolic CHF, chronic hypoxic respiratory failure, who was admitted after noting an episode of severe vertigo. She reports feeling well in these past several days. On the morning of 05/27/2018, she woke up abruptly at 4:57 a.m. with nausea. She sat on the side of her bed and then had experienced severe vertigo with room spinning. She assumed she may be hypoglycemic and ate a Lifesaver. She called on her wrist alert button for the resident assistance at [facility]. Upon their arrival , she was noted to be hypoxic, with an O2 saturation in the high 70s, low 80s. It was then discovered that her oxygen concentrator had been reset to 2 L/ minute from her chronic setting of 3 L/minute. The tubing on her nasal cannula was also noted to be kinked. Additionally, her blood pressure was elevated at 147. Slowly, her symptoms resolved, but she was brought into the emergency department for further evaluation. She denies any recent weight gain, PND, orthopnea, palpitations, presyncope, syncope, or chest pains. She reports she is active with her ADLs. 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 She plays bridge with her friends, but admits to no regular exercise. She has no recollection of how her oxygen concentrator settings would have been changed. PAST MEDICAL HISTORY: 1. TAVR, October of 2017. 2. Qvhv-wd-plgcqhkq CAD based on left heart catheterization. She had left main of 20%, mid RCA of 30% to 40%, left circumflex of 30%, and LAD with mild luminal irregularities. 3. Peripheral arterial disease with 50% right common iliac artery stenosis based on left heart catheterization results in September. 4. Hypertension. 5. COPD. 6. GERD. FAMILY HISTORY: Reviewed. PAST SURGICAL HISTORY: Sympathectomy, ureter surgery, and vein stripping. SOCIAL HISTORY: She is a former smoker. She lives at the [facility]. She denies any alcohol intake. OUTPATIENT MEDICATIONS: Include spironolactone, atorvastatin, Colace, furosemide, lisinopril, omeprazole, Singulair, p.r.n. ibuprofen, and multivitamin. ALLERGIES: Bacitracin, Neosporin, polymyxin, and sulfonamides. REVIEW OF SYSTEMS: As per HPI. A complete 10-point review of systems was obtained and is negative, except for what is dictated. PHYSICAL EXAMINATION: VITAL SIGNS: BP of 105/46, heart rate of 93, respirations 17, O2 saturation 96% on 4 L, temp of 99 degrees Fahrenheit. GENERAL: She is a pleasant female in no apparent distress. HEENT: Head is normocephalic, atraumatic. Eyes are without scleral icterus. HEART: Regular rate and rhythm, with a soft systolic murmur auscultated. She has JVD present at 45 degrees. LUNGS: Diminished. Spine is severely scoliotic and kyphotic. ABDOMEN: Soft. : No Montgomery present. SKIN: Warm and dry. PSYCH: Normal mood and affect. NEURO: No focal deficits detected. LABORATORY DATA: CBC with WBC 6.21, hemoglobin 10.7, hematocrit 32.4, platelet count of 257. BMP with sodium 136, potassium 4.8, chloride 99, CO2 28, BUN 49, creatinine of 1, glucose 83. Troponin was initially 0.37, then 0.994, then 1.04 yesterday p.m. IMAGING: Twelve-lead ECG personally reviewed and interpreted, shows sinus rhythm with a left atrial abnormality, first-degree AV block, left bundle branch block. Chest x-ray shows small bilateral effusions. Her heart catheterization was reviewed from 09/26. Her echo from 05/27/2018, shows an EF of 60, moderate MS with ppag-qg-pumjukdh MR, trivial aortic regurgitation, with a CoreValve in place, nkyx-bj-rugbitwa TR, RVSP of 48 mmHg. Telemetry reviewed, shows left bundle branch block. I reviewed the patient's care with Dr. Santos, Dr. Read, and Dr. Charlie Rosado. IMPRESSION AND PLAN: The patient is an 83-year-old female who presents with vertigo and nausea, which we feel is secondary to hypoxia. 1. Acute hypoxic respiratory failure. This is likely related to kinking in her oxygen tubing, as well as her setting being decreased from 3 L/minute to 2 L /minute on her home concentrator. Her symptoms have resolved. 2. Chronic diastolic congestive heart failure. Her BNP is at its lowest at 409. We will decrease her Lasix to 20 mg daily from her typical dosing of 40 mg and 20 mg in alternating dosing. 3. Elevated troponin. This is in the setting of hypoxia, which may have been going on for days as she is unsure when the settings were changed on her home concentrator. She has no evidence of wall motion abnormality and no compromise to her ejection fraction on echo. Given her recent heart catheterization showing no significant obstruction, she will be continued on medical management at this point. We will defer addition of beta-adrian as her blood pressures have been quite low in this hospitalization, and she has chronic obstructive pulmonary disease, and so we would not want to worsen any bronchospasm. 4. History of aortic stenosis, status post transcatheter aortic valve replacement. Her valve looks to be functioning excellently. 5. Mitral stenosis with mitral regurgitation. Her valve function for her mitral valve looks stable. She is managed with blood pressure management and diuresis. 6. Hypertension. Blood pressures look acceptably controlled. 7. Coronary artery disease. She has wnnf-pw-yypxqlrg coronary artery disease. She may continue aspirin therapy and hypertensive management. She is also on statin therapy. /[id number]/MODL MTDD
--- NOTE | 2018-05-28 15:08 | ASMTCMCOM ---
CM Note CM Note Notes: Spoke with pt in the room and discussed pt during rounds. Pt lives independently at the [facility] and was admitted for NSTEMI. hypoxia and CHF. Pt is followed by [facility]. No therapies have been ordered. Pt comfortable with discharge independently when the time comes. No CM needs noted at this time. D/C Plan : Home independently to the [facility]. Date Signed: 05/28/2018 03:07 PM Electronically Signed By:Yumi Luna
--- NOTE | 2018-05-28 16:06 | PDMN ---
Medical Necessity Medical necessity: Pt meets IP criteria as of 05/27/2018 per and MCG M-230 ( Myocardial Infarction); los > 2 mn for ongoing tx and management of NSTEMI with acute hypoxic respiratory failure and pulmonary edema.
[2018-05-28] MEDS: MONTELUKAST SODIUM 10 MG TAB PO SCH (21:49)
[2018-05-28] MEDS: ATORVASTATIN CALCIUM 40 MG TAB PO SCH (21:49)
[2018-05-28] MEDS: DOCUSATE SODIUM 100 MG CAP PO SCH (21:49)
[2018-05-29] MEDS ORDERED: FUROSEMIDE 20 MG TAB PO SCH (09:00)
[2018-05-29] MEDS: ASPIRIN 81 MG CHEWABLE TAB PO SCH (10:15)
[2018-05-29] MEDS: LISINOPRIL 5 MG TAB PO SCH (10:16)
[2018-05-29] MEDS: SPIRONOLACTONE 25 MG TAB PO SCH (10:17)
[2018-05-29] MEDS: PANTOPRAZOLE SODIUM 40 MG TAB PO SCH (10:17)
[2018-05-29 10:18] VITALS: BP 110/44
--- NOTE | 2018-05-29 13:36 | PDDCSUM ---
Discharge Summary Discharge Summary: Date of Admission: 05/27/2018 Date of Discharge: 05/29/2018 Consults: Cardiology Hospital Course Problem List: DIAGNOSES: * Acute on chronic hypoxemic respiratory failure * NSTEMI; Known coronary disease, HTN, HLD * Mild Acute Diastolic CHF * Acute Kidney Injury, improved overnight with tx of CHF * Known valvular heart disease Moderate MR and MS; s/p TAVR * Known severe kyphoscoliosis and restrictive lung disease * Hx of Upper GI bleedig * peripheral neuropathy PLANS: * Continue gentle diuresis, switched to Lasix 20 mg PO qd upon discharge, was previously on 40 mg qd * Cardiology consulted for further assessment of non STEMI - recommend no futher w/u given no WMA on TTE and recent negative RHC Time spent on discharge was >35 minutes with >50% of time spent on patient education
--- NOTE | 2018-05-29 13:52 | CPEKG ---
Test Reason : OPEN Blood Pressure : / mmHG Vent. Rate : 095 BPM Atrial Rate : 096 BPM P-R Int : 197 ms QRS Dur : 130 ms QT Int : 403 ms P-R-T Axes : 030 004 175 degrees QTc Int : 507 ms Sinus rhythm Left bundle branch block Confirmed by Guero Bhakta ([id number]) on 05/29/2018 1:52:47 PM Referred By: Confirmed By:Guero Bhakta
== END 2018-05-29 12:08 | disposition home or self-care (01) | DRG 189 ==
LOC: EDUNIT# → F2W 14:05 → OBSVTOIN 19:40
PROVIDERS: ADMIT Internal Medicine; ATTEND Internal Medicine
DX: J96.21 Acute and chronic respiratory failure with hypoxia (principal); Z99.81 Dependence on supplemental oxygen; I21.4 Non-ST elevation (NSTEMI) myocardial infarction; I50.33 Acute on chronic diastolic (congestive) heart failure; I25.10 Atherosclerotic heart disease of native coronary artery without angina pectoris; I10 Essential (primary) hypertension; E78.5 Hyperlipidemia, unspecified; I34.0 Nonrheumatic mitral (valve) insufficiency; I34.2 Nonrheumatic mitral (valve) stenosis; Z95.3 Presence of xenogenic heart valve; M41.9 Scoliosis, unspecified; J98.4 Other disorders of lung; G62.9 Polyneuropathy, unspecified
CPT/HCPCS: 84484-ER

== ENCOUNTER → 2018-10-17 | Outpatient (CLI) | payer OTHER, MEDICARE | LOC: BHFA 13:15 | PROVIDERS: ATTEND Internal Medicine Cardiovascular Disease | DX: I35.0 Nonrheumatic aortic (valve) stenosis (principal); I25.10 Atherosclerotic heart disease of native coronary artery without angina pectoris ==